=== PATIENT | female | born 1940 | race Caucasian/White ===

== ENCOUNTER 2024-05-02 23:41 | Inpatient (IN) | payer OTHER, SELFPAY ==
[2024-05-02 18:44] VITALS: BP 143/86
[2024-05-02 19:19] VITALS: BMI 18.5
[2024-05-02 19:43] VITALS: BP 153/76
[2024-05-02 19:54] LABS: % Basophils 0.4 % (0-2); % Eosinophils 0.3 % (0-6); % Immature Granulocytes 0.3 % (0-0.5); % Lymphocytes 15.1 % (20.5-51.1); % Neutrophils 79.9 % (42.2-75.2); Absolute Lymphocytes 1.2 10^3/uL (1.2-3.4); Absolute Monocytes 0.3 10^3/uL (0.1-0.6); Absolute Neutrophils 6.1 10^3/uL (1.4-6.5); Hematocrit 34.4 % (37.0-47.0); Hemoglobin 11.1 g/dL (12.0-16.0); Mean Corp Hgb Conc. 32.3 g/dL (33.0-37.0); Mean Corpuscular Hgb 26.9 pg (27.0-31.0); Mean Corpuscular Volume 83.3 fL (81.0-99.0); Mean Platelet Volume 8.8 fL (7.4-10.4); Nucleated Red Blood Cells % 0 %; Platelet Count 210 10^3/uL (130-400); Red Blood Cell Count 4.13 10^6/uL (4.20-5.40); Red Cell Dist. Width 16.6 % (11.5-14.5); White Blood Cell Count 7.7 10^3/uL (4.8-10.8)
[2024-05-02 20:00] VITALS: BP 157/82
[2024-05-02 20:13] LABS: Blood Urea Nitrogen 25 mg/dl (7-17); Calcium 8.3 mg/dl (8.4-10.2); Carbon Dioxide 27 mmol/L (22-30); Chloride 105 mmol/L (98-107); Estimated Creatinine Clearance 17 ml/min; Glucose 104 mg/dl (70-99); Sodium 138 mmol/L (135-145); eGFR 27.44
--- NOTE | 2024-05-02 20:23 | ED.GENMED ---
History of Present Illness
General
Chief Complaint: Breathing Problem
Source: patient and family (Son)
Exam Limitations: none
Time Seen by Provider: 05/02/24 19:48
Nursing documentation reviewed up to this point in time: agreed with
History of Present Illness
History of Present Illness:
The patient is an 83-year-old female with a past medical history of lung cancer years ago with a lobectomy, as well as hypertension, who was brought in by her son for several months of increased fatigue, generalized weakness, and recent findings of
pulse ox in the 80s. Patient denies pain but reports she just feels extremely tired. Patient lives alone however son checks up on her every day. Patient denies any recent falls. Patient reports at least 10 pound weight loss this year but states
she has been eating well. Patient denies cough, fever, and specific shortness of breath.
Past History
Past History
ED Past Medical History: Cancer (Esophageal cancer treated with resection 2010.), GERD, HTN, NIDDM and Hypothyroidism
ED Past Surgical History: Gynecological and Other (Esophagectomy 2011 lung resection, partial gastric resection.)
Social History
Tobacco: Former smoker
Alcohol: None
Drug: None
Personal: Single
Living: alone
Employment: Retired
Family History
Family History: Other (Noncontributory)
Review of Systems
Review of Systems
Allergies reviewed?: Yes
Other source history: family
All Other Systems: ROS reviewed and negative except as documented in HPI and ROS
Constitutional: Reports weight loss and fatigue
EENT: Reports no symptoms
Respiratory: Reports no symptoms
Cardiac: Reports no symptoms
ABD/GI: Reports no symptoms
: Reports no symptoms
Musculoskeletal: Reports no symptoms
Skin: Reports no symptoms
Neurological: Reports no symptoms
Endocrine: Reports no symptoms
Hematologic/Lymphatic: Reports no symptoms
Psychiatric: Reports no symptoms
Phy Exam
Physical Exam
Physical Exam:
Physical Exam
General: Chronically ill appearing, cachectic
Neck: supple. no meningeal signs. normal psoterior pharynx
Heart: s1/s2 regular rate and rhythm,
Lungs: no acute respiratory distress. Decreased breath sounds bilaterally
Abdomen: normal bowel sounds. not tender. no CVAT
Neuro: alert and oriented. no focal neurological deficits
Skin: no rash
Psychiatric: well kept. interactive and cooperative
Extremities: no edema. no calf tenderness. negative homans. good distal pulses
Scores
Heart Failure Risk
Heart Failure Risk Score: Not Applicable
Course
Orders/Labs/Results
Orders:
Orders
05/02/24 19:43
Basic Metabolic Panel Urgent
Comment: BMP NO K
Complete Blood Count/With Diff Urgent
05/02/24 19:47
EKG [Electrocardiogram (*1)] Urgent
Reason for Study: Shortness of Breath
EKG- Treatment ONCE
05/02/24 20:37
CT Chest W/o Iv Contrast Urgent
Comment:
Reason For Exam: SOB, weight loss
05/02/24 20:38
Oqysh-Ummt-Ijfmskh Urgent
Potassium Urgent
Abnormal Lab Results
05/02/24 05/02/24
19:43 20:38
RBC 4.13 L 10^6/uL
(4.20-5.40)
Hgb 11.1 L g/dL
(12.0-16.0)
Hct 34.4 L %
(37.0-47.0)
MCH 26.9 L pg
(27.0-31.0)
MCHC 32.3 L g/dL
(33.0-37.0)
RDW 16.6 H %
(11.5-14.5)
Neutrophils % 79.9 H %
(42.2-75.2)
Lymphocytes % 15.1 L %
(20.5-51.1)
BUN 25 H mg/dl
(7-17)
Creatinine 1.8 H mg/dL
(0.6-1.0)
Glucose 104 H mg/dl
(70-99)
Calcium 8.3 L mg/dl
(8.4-10.2)
Total Protein 5.9 L g/dl
(6.3-8.2)
Albumin 3.1 L g/dl
(3.5-5.0)
05/02/24 19:43
05/02/24 20:38
Vital Signs
Initial and Last Documented VS:
Initial Vital Signs
Temp Pulse Resp BP Pulse Ox
97.9 F 87 20 143/86 94
05/02/24 18:44 05/02/24 18:44 05/02/24 18:44 05/02/24 18:44 05/02/24 18:44
Last Documented Vital Signs
Temp Pulse Resp BP Pulse Ox
97.9 F 54 20 149/75 98
05/02/24 18:44 05/02/24 22:15 05/02/24 22:15 05/02/24 22:00 05/02/24 22:00
MDM/Problems Addressed
Differential Diagnosis Includes:
Acute dehydration, acute CHF, recurrence of malignancy
MDM/Problems Addressed:
Patient presents with several months of weight loss and fatigue with an acutely low pulse ox
Chronic conditions affecting care:
Patient has a history of cancer which may be reoccurring and causing weight loss and fatigue
Chronic conditions affecting care: Cancer
Acute Exacerbation and/or Progression of Chronic Illness:
Patient may have acute recurrence of cancer
Acute Exacerbation and/or Progression of Chronic Illness: Cancer
*Radiology
Radiology exam reviewed: radiology read reviewed
*Pulse Oximetry
Patient hypoxic: no
*EKG
Interpreted by ED Provider?: Yes
Interpretation: abnormal
Comparison EKG: changes noted
Rate: bradycardiac
Rhythm: junctional
Roff: normal axis
Interval: normal interval
QRS Pattern: low voltage
Ischemia: non-specific ST changes
*[facility] Interpretation
Rate: bradycardiac
Interpretation: abnormal
Rhythm: other
*Critical Care Note
Total Time (30-74mins, 75-104mins- exclusive of procedures): Not Applicable
Data Reviewed
Review of Other/Old Records Reveals: Testing (Colonoscopy reviewed from 2019 which shows diffuse diverticulosis)
Source: patient
Patient Management
Social determinants of health affecting care: Living situation
ED Attending Note
-
Portions of this chart may have been created with voice recognition software.� Occasional wrong word or��sound alike� substitutions may have occurred due to the inherent limitations of voice recognition software.
Discharge Plan
Departure
Patient Disposition: Admit
Date of Disposition: 05/02/24
Time of Disposition: 22:18
Admit to: Med/Surg
Presentation/result/management discussed w/ accepting MD/DO: Hospitalist
Condition: Fair
Covid-19: Not Applicable
Discharge Problem:
Pleural effusion, bilateral, Acute bronchiolitis, Multifocal pneumonia, acute hypoxia
Prescriptions:
No Action
latanoprost 1 DROP drops
1 drp BOTH EYES HS
levothyroxine 75 MCG tablet
75 mcg PO DAILY
lansoprazole 30 MG capsule,delayed release(DR/EC)
30 mg PO DAILY
doxazosin 4 MG tablet
4 mg PO HS
esomeprazole magnesium [Nexium 24HR] 22.3 MG capsule,delayed release(DR/EC)
22.3 mg PO PRN PRN (Reason: GI distress)
propylene glycol-glycerin [Advanced Eye Relief] 15 ML drops
1 drp BOTH EYES TID
omeprazole magnesium [Prilosec OTC] 20 MG tablet,delayed release (DR/EC)
20 mg PO DAILY
polyethylene glycol 3350 17 GRAMS powder in packet
17 grams PO DAILY 0RF
alprazolam 0.25 MG tablet
0.25 mg PO BIDPRN PRN (Reason: anxiety)
lisinopril 10 MG tablet
10 mg PO DAILY
sennosides [senna] 1 TABLET tablet
2 tab PO BID 0RF
ipratropium-albuterol 3 ML solution for nebulization
3 ml inhalation R QID 0RF
ipratropium-albuterol 3 ML solution for nebulization
3 ml inhalation R Q4HPRN PRN (Reason: wheezing) 0RF
tizanidine 2 MG tablet
2 mg PO TID 0RF
acetaminophen [Tylenol Extra Strength] 500 MG tablet
1,000 mg PO QID 0RF
hydromorphone 2 MG tablet
2 mg PO Q4HPRN PRN (Reason: mild pain) Qty: 40 0RF
magnesium hydroxide 30 ML suspension
30 ml PO DAILYPRN PRN (Reason: constipation) 0RF
aspirin 325 MG tablet,delayed release (DR/EC)
325 mg PO DAILY 0RF
ferrous sulfate [FeroSul] 325 MG tablet
325 mg PO DAILY 0RF
lidocaine 1 PATCH adhesive patch,medicated
2 patch topical DAILY 0RF
docusate sodium 100 MG capsule
100 mg PO BID 0RF
alum-mag hydroxide-simeth [Mag-Al Plus] 30 ML suspension
30 ml PO Q4HPRN PRN (Reason: INDIGESTION) 0RF
hydromorphone 4 MG tablet
4 mg PO Q4HPRN PRN (Reason: mod pain) Qty: 40 0RF
ppuciwln-mhz-yjopmqq gluconate [Centrum] 9 MG/15 ML liquid
9 mg PO DAILY
ergocalciferol (vitamin D2) 50,000 UNITS capsule
50,000 units PO WE
Referrals:
Saqib Mcgrath, [Family Provider] -
Interventions
Interventions:
*Risk Screen - Suicide Last Done: 05/02/24 21:21
*General Assessment Last Done: 05/02/24 18:44
*Neglect/Abuse Screening Last Done: 05/02/24 21:21
ED- Fall Risk Assessment Last Done: 05/02/24 19:21
*ED COVID-19 Vaccine History Last Done: 05/02/24 18:44
ED- Cardiac Assessment Last Done: 05/02/24 19:21
ED- Pulmonary Assessment Last Done: 05/02/24 19:21
Discharge Date and Time
Print Language: FRENCH
[2024-05-02 20:57] LABS: ALT (SGPT) < 10 U/L (0-35); AST (SGOT) 18 U/L (14-36); Albumin 3.1 g/dl (3.5-5.0); Alkaline Phosphatase 68 U/L (38-126); Direct Bilirubin 0.3 mg/dl (0.0-0.4); Potassium 4.7 mmol/L (3.5-5.1); Total Bilirubin 0.4 mg/dl (0.2-1.3); Total Protein 5.9 g/dl (6.3-8.2)
[2024-05-02 21:00] VITALS: BP 147/80
[2024-05-02 22:00] VITALS: BP 149/75
--- NOTE | 2024-05-02 22:51 | HPS.HSE ---
Family Physician
-
Family Physician: Saqib Mcgrath
Chief Complaint
-
weight loss, fatigue
History of Present Illness
83F lives alone HX Esophageal cancer treated with resection 2010, Lobectomy for HX Ca Lung yrs ago T2DM, HTN BiB Son for evalaution of gradual onset of increased fatigue, generalized weakness, and recent findings of pulse ox in the 80s.
Son check on her daily.
Patient reports at least 10 pound weight loss this year but states she has been eating well.
ROS
Patient denies pain but reports she just feels extremely tired.
Patient denies any recent falls.
Patient denies cough, fever, and specific shortness of breath.
Medical History
Past Medical History
Past Medical History: Reports Cancer (HX Esophageal cancer treated with resection 2010, Lobectomy for HX Ca Lung yrs ago ), HTN and Hypothyroidism
Past Surgical History: Reports Other (HX Esophageal cancer treated with resection 2010, Lobectomy for HX Ca Lung yrs ago )
Social History
Tobacco: Non-smoker
Alcohol: None
Living: Alone
Family History
Family History: Not pertinent
Allergies / Home Medications
Allergies reflects when Allergies were last updated in [facility].
Home Medications with original date entered in [facility]
Allergy/Medication List:
Allergies
Allergy/AdvReac Type Severity Reaction Status Date / Time
NKA - No Known Allergies Allergy Unknown Uncoded 05/02/24 18:48
Home Medications
doxazosin 4 mg tablet 4 mg PO HS 05/10/17
esomeprazole magnesium 20 mg capsule,delayed release (Nexium 24HR) 22.3 mg PO PRN PRN GI distress 05/10/17
lansoprazole 30 mg capsule,delayed release 30 mg PO DAILY 05/10/17
latanoprost 0.005 % eye drops 1 drp BOTH EYES HS 05/10/17
levothyroxine 75 mcg tablet 75 mcg PO DAILY 05/10/17
omeprazole magnesium 20 mg tablet,delayed release (Prilosec OTC) 20 mg PO DAILY 05/10/17
propylene glycol 1 %-glycerin 0.3 % eye drops (Advanced Eye Relief) 1 drp BOTH EYES TID 05/10/17
polyethylene glycol 3350 17 gram oral powder packet 17 grams PO DAILY 05/23/17
alprazolam 0.25 mg tablet 0.25 mg PO BIDPRN PRN anxiety 06/09/17
lisinopril 10 mg tablet 10 mg PO DAILY 06/09/17
acetaminophen 500 mg tablet (Tylenol Extra Strength) 1,000 mg (2 x 500 mg) PO QID 06/13/17
aluminum-mag hydroxide-simethicone 200 mg-200 mg-20 mg/5 mL oral susp (Mag-Al Plus) 30 ml PO Q4HPRN PRN INDIGESTION 06/13/17
aspirin 325 mg tablet,delayed release 325 mg PO DAILY 06/13/17
docusate sodium 100 mg capsule 100 mg PO BID 06/13/17
ferrous sulfate 325 mg (65 mg iron) tablet (FeroSul) 325 mg PO DAILY 06/13/17
hydromorphone 2 mg tablet 2 mg PO Q4HPRN PRN mild pain ##40 06/13/17
hydromorphone 4 mg tablet 4 mg PO Q4HPRN PRN mod pain ##40 06/13/17
ipratropium 0.5 mg-albuterol 3 mg (2.5 mg base)/3 mL nebulization soln 3 ml inhalation R Q4HPRN PRN wheezing 06/13/17
ipratropium 0.5 mg-albuterol 3 mg (2.5 mg base)/3 mL nebulization soln 3 ml inhalation R QID 06/13/17
lidocaine 5 % topical patch 2 patch topical DAILY 06/13/17
magnesium hydroxide 400 mg/5 mL oral suspension 30 ml PO DAILYPRN PRN constipation 06/13/17
sennosides 8.6 mg tablet (senna) 2 tab PO BID 06/13/17
tizanidine 2 mg tablet 2 mg PO TID 06/13/17
ergocalciferol (vitamin D2) 1,250 mcg (50,000 unit) capsule 50,000 units PO WE 06/24/17
multivit and minerals-ferrous gluconate 9 mg iron/15 mL oral liquid (Centrum) 9 mg PO DAILY 06/24/17
Review of Systems
-
Constitutional: Reports Weight Loss and Fatigue
EENT: Reports No Symptoms
Respiratory: Reports Trouble Breathing
Cardiac: Reports No Symptoms
Abdomen/GI: Reports No Symptoms
: Reports No Symptoms
Musculoskeletal: Reports No Symptoms
Skin: Reports No Symptoms
Neurological: Reports No Symptoms
Endocrine: Reports No Symptoms
Hematologic/Lymphatic: Reports No Symptoms
Psych: Reports No Symptoms
Physical Exam
Vital Signs
Vital Signs
Temp Pulse Resp BP Pulse Ox
97.9 F 54 20 149/75 98
05/02/24 18:44 05/02/24 22:15 05/02/24 22:15 05/02/24 22:00 05/02/24 22:00
Physical Exam
General: Comfortable, Conversant and Other (thin, cahectic , skin and bone )
HEENT: NormoCephalic, Anicteric and Moist mucous membranes
Respiratory: Other (symmetric AE )
Cardiac: S1/S2 and Regular Rhythm; No Murmur
Breast: Deferred by me
GI: Soft, Non Distended and Normal Bowel Sounds; No Non Tender
Genito-urinary: Deferred by me
Musculoskeletal: No Edema
Skin: Warm and Dry
Neuro: Awake, Alert and Other (suspect slow cognitive speed and confused )
Psych: Calm and Confused; No Intact Judgment/Insight
Laboratory Results
-
05/02/24 19:43
05/02/24 20:38
Laboratory Results
Total Bilirubin 0.4 mg/dl (0.2-1.3) 05/02/24 20:38
AST 18 U/L (14-36) 05/02/24 20:38
ALT < 10 U/L (0-35) 05/02/24 20:38
Alkaline Phosphatase 68 U/L (38-126) 05/02/24 20:38
Data Reviewed
-
CT Scan: Report Reviewed by me
Lab Data: Labs Reviewed by me
Impression/Plan
-
Vital Signs
Temp Pulse Resp BP Pulse Ox
97.9 F 54 20 149/75 98
05/02/24 18:44 05/02/24 22:15 05/02/24 22:15 05/02/24 22:00 05/02/24 22:00
Laboratory Tests
06/24/17 05/02/24 05/02/24
20:48 19:43 20:38
WBC 7.7
Hgb 8.7 L 11.1 L
BUN 25 H
Creatinine 2.0 H 1.8 H
Estimated Creat Clear 22 17
eGFR 27.44
Albumin 3.1 L
Pending PCT
CT chest night hawk report
- small b/l pleural effusion
- concerning for acute bronchiolitis at Rt lung
- multifocal PNA at Rt lung
ASSESSMENT & PLAN
Somewhat chronic weakness and fatigue and cathexic
Significant Wt loss 35 lbs per Son over 3-6 months
HX suggestive subacute or chronic FTT decompensated by current PNA
CT suggest multifocal PNA at Rt lung
HX Esophageal cancer treated with resection 2010, Lobectomy for HX Ca Lung yrs ago
- Empiric IV ABx with CFTX and Azithromycin
- check PCT
- Pul consult to evaluate for possible recurrence of lung CA
Chr condition
suspect cognitive decline
CKD4
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
T2DM
Benign HTN
- pending Rx reconciliation
DVT Px: SQH
Code: DNR per POA son
IP MS
[2024-05-02 23:02] VITALS: BP 147/71
[2024-05-02] MEDS: ROCEPHIN 1000 MG IV (23:04)
[2024-05-02] MEDS: ZITHROMAX INFUSION 250 IV (23:11)
[2024-05-02 23:35] LABS: Procalcitonin < 0.05 ng/ml (0.0-0.25)
[2024-05-03] VITALS: BP 165/87
[2024-05-03 00:25] VITALS: BP 129/70
--- NOTE | 2024-05-03 01:56 | PTCARENOTE ---
Attempted to complete patients medication reconciliation- pt provided RN with paperwork with medication list from 2021 many medications on list not correct. Pt states son will provide with list in AM.
[2024-05-03 07:35] VITALS: BP 151/63
[2024-05-03 08:29] LABS: Hematocrit 31.5 % (37.0-47.0); Mean Corp Hgb Conc. 31.7 g/dL (33.0-37.0); Mean Corpuscular Hgb 27.3 pg (27.0-31.0); Mean Corpuscular Volume 86.1 fL (81.0-99.0); Mean Platelet Volume 8.6 fL (7.4-10.4); Platelet Count 189 10^3/uL (130-400); Red Blood Cell Count 3.66 10^6/uL (4.20-5.40); Red Cell Dist. Width 16.2 % (11.5-14.5); White Blood Cell Count 5.9 10^3/uL (4.8-10.8)
--- NOTE | 2024-05-03 08:42 | W.PN.HOSP.TC ---
Addendum entered and electronically signed by Evelio Montana MD 05/03/24 20:55:
Attending Addendum-
I saw and evaluated the patient. I reviewed the resident�s note and agree with findings and plan as documented in the resident�s note. Sub: feels weak. episode of emesis this am. 'i cant eat or drink that much- i just throw up after' Full 12 point
ROS reviewed and negative except as documented Exam: Vitals reviewed in chart GEN- cachectic appearing NAD heart RRR lungs scattered wheeze no BS at bases no rales rhonchi abd soft NT pos BS LE no edema PLan:
# CAP vs Aspiration PNA
- cont azithromycin and Rocephin day # 2
- pulm consult
- speech eval
CT-
1. Extensive reticulonodular and peribronchiolar opacities bilaterally, right greater than left. Differential diagnosis includes severe bronchiolitis/infection, and lymphangitic spread of carcinoma.
2. Multiple pulmonary nodules, measuring up to 2.7 cm in diameter. These may be infectious or neoplastic. Consider short-term follow-up CT.
3. Small bilateral pleural effusions.
- d/w patient and son- likely to pursue palliative care and dc home on abx
# N/V/ Significant Weight Loss/Severe PCM
- check ct abd
- symptomatic/supportive care
- speech eval
- GI c/s
#Acute Hypoxemic Respiratory Failure
- likely due to aspiration and PNA
- wean o2 for sats > 92%
# GERD
- cont pepcid
# Hypothyroidism
- check TSH
- cont levothyroxine
# HTN
- cont lisinopril for now
# CKD 4
- baseline cr @ 1.8
- avoid NT agents
# Lung ca - s/p lobectomy with likely new mets- pall care, eventual hospice, f/u [facility]
# Esophageal ca- s/p esophagectomy with pullthrough
DVT-p- hep sc
Code - DNR
Dispo DC home on hospice likely
Time spent coordinating care, review of plan of care with resident, personally reviewed records in EMR, med rec, consults, notes, labs, radiology, d/w nursing �65 mins
Original Note:
Today's Communication/Plan
-
C/w Abx for suspected Aspiration PNA. Likely Palliative consult in the AM w/ possible discharge home on oral Abx.
Assessment / Plan
Assessment / Plan
Assessment & Plan
##Multifocal Bacterial Pneumonia of the right lung, likely secondary to aspiration event at home
- Started on empiric Abx Azithromycin PO & Ceftriaxone IV for presumed CAP
- History of chronic aspiration at home
- CT findings of extensive reticulonodular and peribronchiolar opacities bilaterally, right greater than left, and extensive interstitial and acinar airspace disease throughout the right lower lobe suggesting pneumonia
- C/w abx as above
#History fo Non-Small Cell Lung Cancer, s/p wedge resection
- CT (+) for Multiple pulmonary nodules, measuring up to 2.7 cm in diameter.
- Seen by pulmonology
- Recc. close followup with [facility] and repeat CT-imaging after resolution of bacterial pneumonia
#Fatigue, generalized weakness
#Vomiting
#Weight Loss
- 35lb weight loss since 2023
- Likely a combination of 7cm hiatal hernia vs. cancer recurrence
- GI Consulted for evaluation
- Consider palliative consult in the AM
- Aspiration precautions
#Type II Diabetes Mellitus
- Glucose 75 in the AM
- Holding diabetes medication for now as patient is barely tolerating PO
#Hypertension, Essential
- On home dose lisinopril 10mg PO
#Hypothyroidism
- Start on most recent home dose 88mcg
Dispo: Med/Surg
Diet: Cholesterol Lowering
DVT PPx: Heparin 5000 Q12H
Code: DNR
Anticipated Discharge: 24 - 48 hours
Subjective/Interval History
-
This morning the patient was seen just after breakfast. She had attempted to eat a solid breakfast, but had vomited up her stomach contents into her bowl only minutes prior to the examination. There was no blood in the vomit and the patient then
began to describe persistent vomiting over the precedent two weeks, typically after her stomach had 'become full enough.' She complained of no pain or shortness of breath, only of fatigue. She endorses no fevers, chills, shortness of breath, chest
pain, lightheadedness, palpitations, nausea, diarrhea, or urinary symptoms.
The son was interviewed in the afternoon and further information was elucidated regarding the patient's cancer history. For treatment of distal esophageal signet ring cell adenocarcinoma, the patient underwent resection and esophagectomy with
gastric pull-through. After this time, she has apparently had a chronic history of aspiration of food contents. It is unclear if she has had diagnosed aspiration pneumonia, however, or if she has ever been treated for this in the past.
The most recent medication list provided by family is dated from 2021.
Son Molly #[phone]
Objective Data
-
Labs:
Laboratory Results
05/02/24 05/03/24
20:38 07:50
WBC 5.9
Hgb 10.0 L
Hct 31.5 L
Plt Count 189
Sodium Pending
Potassium 4.7 Pending
Chloride Pending
Carbon Dioxide Pending
BUN Pending
Creatinine Pending
Glucose Pending
Calcium Pending
Total Bilirubin 0.4 Pending
AST 18 Pending
ALT < 10 Pending
Alkaline Phosphatase 68 Pending
Vital Signs:
Vital Signs
Temp Pulse Resp BP Pulse Ox
97.6 F 67 18 129/70 98
05/03/24 00:25 05/03/24 00:25 05/03/24 00:25 05/03/24 00:25 05/03/24 00:30
I&O
05/02/24 05/03/24 05/04/24
06:59 06:59 06:59
Intake Total 240 / 240
Balance 240 / 240
Review of Systems
-
History Source: Patient and Family
All other systems: Reviewed and negative
Constitutional: Reports Weight Loss, No Appetite, Fatigue and Weakness
EENT: Reports No Symptoms Reported
Respiratory: Reports No Symptoms
Cardiac: Reports No Symptoms
Abdomen/GI: Reports Vomiting
Breast: Reports No Symptoms
Genitourinary: Reports No Symptoms
Musculoskeletal: Reports Muscle Weakness
Skin: Reports No Symptoms
Neuro: Reports No Symptoms
Endocrine: Reports No Symptoms
Hematologic / Lymphatic: Reports No Symptoms
Physical Exam
-
General: Appears Chronically Ill and Cachectic
HEENT: Normocephalic, Atraumatic, Neck Non Tender and Oxygen
Respiratory: Wheezes (End expiratory wheezing, BL but more pronounced on the R) and Crackles
Cardiac: Regular Rhythm, S1/S2 and Bradycardic
Breast: Deferred by me
GI: Soft, Nontender, Nondistended and Normal Bowel Sounds
Genito-urinary: No Costovertebral Tender
Musculoskeletal: No Clubbing, No Cyanosis and No Edema
Neuro: Awake, Alert and Oriented
Hematologic / Lymphatic: No Lymphadenopathy
[2024-05-03 08:50] LABS: ALT (SGPT) < 10 U/L (0-35); AST (SGOT) 16 U/L (14-36); Albumin 2.6 g/dl (3.5-5.0); Alkaline Phosphatase 64 U/L (38-126); Blood Urea Nitrogen 24 mg/dl (7-17); Calcium 8.2 mg/dl (8.4-10.2); Carbon Dioxide 28 mmol/L (22-30); Chloride 107 mmol/L (98-107); Estimated Creatinine Clearance 17 ml/min; Glucose 75 mg/dl (70-99); Sodium 140 mmol/L (135-145); Total Bilirubin 0.4 mg/dl (0.2-1.3); Total Protein 5.3 g/dl (6.3-8.2); eGFR 27.44
--- NOTE | 2024-05-03 09:00 | PTCARENOTE ---
Pt. vomited approx. 100 ml undigested food post breakfast meal. Dr. Gamble at bedside rounding and witnessed. Pt. reports unable to eat full meal over the past week without vomiting. Will continue to monitor pt.
[2024-05-03] MEDS: HEPARIN 5000 UNITS SC ×2 (09:23→20:05)
[2024-05-03] MEDS: OMNIPAQUE 50 ML PO (10:46)
[2024-05-03] MEDS: ZOFRAN 4 MG IV (10:46)
[2024-05-03 11:24] VITALS: BP 119/72; PULSE 63; O2SAT 94
--- NOTE | 2024-05-03 14:51 | CON.PUL ---
Consultation
Consultation Request
Date/Time Consultation Requested: 05/03/2024
Date/Time Consultation Performed: 05/03/2020
Requesting Provider: Dr. Babcock
Performing Provider: Dr. Tico Mason
Reason for Consultation: Abnormal CT chest-concern for cancer recurrence
Medical History
-
History of Present Illness:
83-year-old woman who lives independently and has history of esophageal cancer treated with resection in 2010, history of lung cancer status post resection years ago, type 2 diabetes, hypertension, came to the hospital complaining of gradual
increased fatigue, generalized weakness and recent findings of hypoxemia.
The son usually checks on her on a daily basis.
Reports a 10 pound weight loss recently.
Appetite has declined.
Underwent CT chest as part of the evaluation and showed abnormalities including: Extensive reticulonodular and peribronchiolar opacities bilaterally, right greater than left. Multiple pulmonary nodules up to 2.7 cm in diameter. Small pericardial
effusion, bilateral pleural effusion
We were consulted for evaluation of lung masses and abnormal CT findings.
Past Medical History
Past Medical History: Other (Assessment and plan)
Social History
Tobacco: Non-smoker
Alcohol: None
Living: Alone
Family History
Family History: Reviewed & Not Pertinent
Allergies / Home Medications
Allergies
Allergy/AdvReac Type Severity Reaction Status Date / Time
NKA - No Known Allergies Allergy Unknown Unknown Uncoded 05/03/24 00:37
Home Medications
�Medication �Instructions �Recorded �Confirmed �Last Taken �Type
doxazosin 4 mg tablet 4 mg PO HS 05/10/17 06/24/17 06/08/17 History
esomeprazole magnesium 20 mg 22.3 mg PO PRN PRN GI distress 05/10/17 06/24/17 05/20/17 16:00 History
capsule,delayed release (Nexium
24HR)
lansoprazole 30 mg capsule,delayed 30 mg PO DAILY 05/10/17 06/24/17 06/09/17 07:00 History
release
latanoprost 0.005 % eye drops 1 drp BOTH EYES HS 05/10/17 06/24/17 06/08/17 History
levothyroxine 75 mcg tablet 75 mcg PO DAILY 05/10/17 06/24/17 06/09/17 07:00 History
omeprazole magnesium 20 mg 20 mg PO DAILY 05/10/17 06/24/17 06/09/17 07:00 History
tablet,delayed release (Prilosec
OTC)
propylene glycol 1 %-glycerin 0.3 1 drp BOTH EYES TID 05/10/17 06/24/17 06/09/17 History
% eye drops (Advanced Eye Relief)
polyethylene glycol 3350 17 gram 17 grams PO DAILY 05/23/17 06/24/17 Unknown Rx
oral powder packet
lisinopril 10 mg tablet 10 mg PO DAILY 06/09/17 06/24/17 06/09/17 07:00 History
aluminum-mag hydroxide-simethicone 30 ml PO Q4HPRN PRN INDIGESTION 06/13/17 06/24/17 Unknown Rx
200 mg-200 mg-20 mg/5 mL oral susp
(Mag-Al Plus)
aspirin 325 mg tablet,delayed 325 mg PO DAILY 06/13/17 06/24/17 Unknown Rx
release
docusate sodium 100 mg capsule 100 mg PO BID 06/13/17 06/24/17 Unknown Rx
ferrous sulfate 325 mg (65 mg 325 mg PO DAILY 06/13/17 06/24/17 Unknown Rx
iron) tablet (FeroSul)
ipratropium 0.5 mg-albuterol 3 mg 3 ml inhalation R Q4HPRN PRN 06/13/17 06/24/17 Unknown Rx
(2.5 mg base)/3 mL nebulization wheezing
soln
ipratropium 0.5 mg-albuterol 3 mg 3 ml inhalation R QID 06/13/17 06/24/17 Unknown Rx
(2.5 mg base)/3 mL nebulization
soln
lidocaine 5 % topical patch 2 patch topical DAILY 06/13/17 06/24/17 Unknown Rx
magnesium hydroxide 400 mg/5 mL 30 ml PO DAILYPRN PRN constipation 06/13/17 06/24/17 Unknown Rx
oral suspension
sennosides 8.6 mg tablet (senna) 2 tab PO BID 06/13/17 06/24/17 Unknown Rx
tizanidine 2 mg tablet 2 mg PO TID 06/13/17 06/24/17 Unknown Rx
ergocalciferol (vitamin D2) 1,250 50,000 units PO WE 06/24/17 06/24/17 Unknown History
mcg (50,000 unit) capsule
multivit and minerals-ferrous 9 mg PO DAILY 06/24/17 06/24/17 Unknown History
gluconate 9 mg iron/15 mL oral
liquid (Centrum)
escitalopram oxalate 5 mg tablet 5 mg PO DAILY 05/02/24 Unknown History
(Lexapro)
Review of Systems
-
History Source: Patient
All other systems: Negative unless noted
Vitals / Labs / Diagnostic Testing
Vital Signs
Temp Pulse Resp BP Pulse Ox
97.6 F 56 18 151/63 3
05/03/24 07:35 05/03/24 07:35 05/03/24 07:35 05/03/24 07:35 05/03/24 09:00
Lab Data
05/03/24 07:50
05/03/24 07:50
Diagnostic Testing:
Physical Exam
-
HEENT: Normocephalic
Cardiovascular: S1/S2
Respiratory: Rales
GI: Soft and Non Distended
Neurology: Awake
Skin: Warm
General: Comfortable and Other (Cachectic)
Assessment
-
-Abnormal CT chest: Reviewed, right lung reticulonodular extensive infiltrate. Peribronchial opacities bilaterally.
Pulmonary nodule right upper lobe 2.7 cm spiculated. Right lower lobe 1.7 cm spiculated. Right middle lobe 2.3 cm. Peripheral left upper lobe 4 mm, left lower lobe 1.2 cm. Innumerable centrilobular nodules and peribronchial thickening right
upper lobe, right middle lobe and right lower lobe. Small bilateral pleural effusions.
-Anemia
Conditions present prior admission:
Prior history of lung cancer-follows up at [facility]. Last time seen was 02/05/2024.
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
Right middle lobe groundglass opacity status post wedge resection in 2010.
History of non-small cell cancer
History of vocal cord paralysis and aspiration
Delayed gastric emptying
Chronic aspiration
Chronic kidney disease stage IV
Type 2 diabetes
Benign hypertension DNR
Assessment and plan:
Based on symptoms, weight loss, failure to thrive, CAT scan findings suggestive of recurrent lung cancer . Or other metastatic disease
I reviewed old records, she follows up at [facility]. Prior she has history of lung cancer status post resection, esophageal cancer many years ago status post esophagectomy with pull-through.
Recurrent aspiration.
Peripheral chest reports last CAT scans show also innumerable lung nodules that fluctuated over the years suggestive of aspiration.
There was no mention of large masses as on this CAT scan.
-
At this point I will recommend therapy for aspiration pneumonia/pneumonitis. Agree with current antibiotics.
Nebulizers as needed
Acapella device if able.
Sputum culture if able
Aspiration precautions. Patient has known aspiration chronically.
Once patient improved then follow-up at [facility] for further evaluation of lung masses.
I doubt that this patient based on clinical situation will tolerate any systemic therapy. I discussed with the son and [id number] at the bedside on 05/03/2024 and they both agree that she would not tolerate any other aggressive therapy.
Palliative care/hospice may be an option in the future.
CT abdomen pelvis without evidence for metastatic disease.
-
Follows up with pulmonary at [facility] as well.
Will recommend return to primary catshovel driver/oncologist for further evaluation after discharge. Family agreed that no further aggressive evaluation will be offered.
Patient is eager to go home.
-
Nutritional support
-
Will follow
[2024-05-03 15:38] VITALS: BP 157/75
[2024-05-03] MEDS: ZITHROMAX 500 MG PO (21:20)
[2024-05-03] MEDS: PEPCID 10 MG PO (21:20)
[2024-05-03] MEDS: STERILE WATER FOR INJECTION 10 ML IV (21:24)
[2024-05-03] MEDS: ROCEPHIN 1000 MG IV (21:24)
[2024-05-03 23:46] VITALS: BP 153/62
[2024-05-04] MEDS: SYNTHROID 88 MCG PO (05:27)
--- NOTE | 2024-05-04 06:53 | W.PN.HOSP.TC ---
Today's Communication/Plan
-
Pending Palliative consult & GI consult. C/w IV fluids and will try Ensure.
Assessment / Plan
Assessment / Plan
Assessment & Plan
##Multifocal Bacterial Pneumonia of the right lung, likely secondary to aspiration event at home vs CAP
- Started on empiric Abx Azithromycin PO & Ceftriaxone IV for presumed CAP
- History of chronic aspiration at home
- CT findings of extensive reticulonodular and peribronchiolar opacities bilaterally, right greater than left, and extensive interstitial and acinar airspace disease throughout the right lower lobe suggesting pneumonia
- C/w abx as above
#Acute hypoxic respiratory failure
- Secondary to pneumonia
- Hypoxic into the 80s at home, on 3.5L NC in hospital
- Wean to >92% on RA
#Fatigue, generalized weakness
#Vomiting
#Weight Loss
- 35lb weight loss since 2023
- Likely a combination of 7cm hiatal hernia vs. cancer recurrence
- Speech & Swallow eval: c/w regular solids/thin liquids as swallow is intact
- GI Consulted for evaluation; pending
- Palliative consulted; will see tomorrow
- Started on D5 NS @ 60cc/hour considering poor PO intake
- Aspiration precautions
#Type II Diabetes Mellitus
- Glucose 70 in the AM
- Holding diabetes medication for now as patient is barely tolerating PO
#Hypertension, Essential
- On home dose lisinopril 10mg PO
#Hypothyroidism
- Start on most recent home dose 88mcg
#History of Non-Small Cell Lung Cancer, s/p wedge resection
- CT (+) for Multiple pulmonary nodules, measuring up to 2.7 cm in diameter.
- Seen by pulmonology
- Recc. close followup with [facility] and repeat CT-imaging after resolution of bacterial pneumonia
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
- s/p esophageal resection with gastric pull through
Dispo: Med/Surg
Diet: Cholesterol Lowering
DVT PPx: Heparin 5000 Q12H
Code: DNR
Anticipated Discharge: 24 - 48 hours
Subjective/Interval History
-
Seen in the AM. Had another episode of vomiting up solid breakfast. No nausea, abdominal pain, fevers, chills, cough, shortness of breath, chest pain, or blood in the vomit. No other acute or overnight events.
Objective Data
-
Labs:
Laboratory Results
05/04/24
06:00
WBC Pending
Hgb Pending
Hct Pending
Plt Count Pending
Sodium Pending
Potassium Pending
Chloride Pending
Carbon Dioxide Pending
BUN Pending
Creatinine Pending
Glucose Pending
Calcium Pending
Total Bilirubin Pending
AST Pending
ALT Pending
Alkaline Phosphatase Pending
Vital Signs:
Vital Signs
Temp Pulse Resp BP Pulse Ox
98.5 F 58 16 153/62 96
05/03/24 23:46 05/03/24 23:46 05/03/24 23:46 05/03/24 23:46 05/03/24 23:46
I&O
05/02/24 05/03/24 05/04/24
06:59 06:59 06:59
Intake Total 240 / 240 480 / 480
Output Total 175 / 175
Balance 240 / 240 305 / 305
Review of Systems
-
History Source: Patient
All other systems: Reviewed and negative
Constitutional: Reports No Symptoms
EENT: Reports No Symptoms Reported
Respiratory: Reports No Symptoms
Cardiac: Reports No Symptoms
Abdomen/GI: Reports Vomiting
Breast: Reports No Symptoms
Genitourinary: Reports No Symptoms
Musculoskeletal: Reports Muscle Weakness
Skin: Reports No Symptoms
Neuro: Reports No Symptoms
Physical Exam
-
General: No Apparent Distress, Appears Chronically Ill and Cachectic
HEENT: Normocephalic, Atraumatic, PERRLA, Nose Appears Normal, Ears Appear Normal, Hearing Impaired, Good Dentition (Dentures), Neck Non Tender and Oxygen (3.5L NC)
Respiratory: Wheezes and Crackles
Cardiac: Regular Rhythm and S1/S2
Breast: Deferred by me
GI: Soft, Nontender, Nondistended and Normal Bowel Sounds
Genito-urinary: No Costovertebral Tender
Musculoskeletal: No Clubbing, No Cyanosis and No Edema
Neuro: Awake, Alert and Oriented
[2024-05-04 07:08] VITALS: BP 165/70
[2024-05-04 08:45] LABS: % Basophils 0.3 % (0-2); % Eosinophils 0.3 % (0-6); % Immature Granulocytes 0.3 % (0-0.5); % Lymphocytes 13.4 % (20.5-51.1); % Monocytes 2.8 % (1.7-9.3); % Neutrophils 82.9 % (42.2-75.2); Absolute Lymphocytes 1.2 10^3/uL (1.2-3.4); Absolute Monocytes 0.3 10^3/uL (0.1-0.6); Absolute Neutrophils 7.7 10^3/uL (1.4-6.5); Hemoglobin 9.7 g/dL (12.0-16.0); Mean Corp Hgb Conc. 31.3 g/dL (33.0-37.0); Mean Corpuscular Hgb 26.6 pg (27.0-31.0); Mean Corpuscular Volume 85.2 fL (81.0-99.0); Mean Platelet Volume 8.9 fL (7.4-10.4); Nucleated Red Blood Cells % 0 %; Platelet Count 207 10^3/uL (130-400); Red Blood Cell Count 3.64 10^6/uL (4.20-5.40); Red Cell Dist. Width 16.4 % (11.5-14.5); White Blood Cell Count 9.3 10^3/uL (4.8-10.8)
[2024-05-04] MEDS: HEPARIN 5000 UNITS SC ×2 (08:53→21:57)
[2024-05-04] MEDS: ZESTRIL 10 MG PO (08:54)
[2024-05-04] MEDS: FLUSH (NSS) 1 FLUSH IV (08:56)
[2024-05-04 09:07] LABS: ALT (SGPT) < 10 U/L (0-35); AST (SGOT) 16 U/L (14-36); Albumin 2.7 g/dl (3.5-5.0); Alkaline Phosphatase 67 U/L (38-126); Blood Urea Nitrogen 24 mg/dl (7-17); Calcium 8.5 mg/dl (8.4-10.2); Carbon Dioxide 28 mmol/L (22-30); Chloride 105 mmol/L (98-107); Estimated Creatinine Clearance 18 ml/min; Glucose 70 mg/dl (70-99); Potassium 4.3 mmol/L (3.5-5.1); Sodium 141 mmol/L (135-145); Total Bilirubin 0.3 mg/dl (0.2-1.3); Total Protein 5.4 g/dl (6.3-8.2); eGFR 29.39
[2024-05-04] MEDS: NSS 1000 IV (10:47)
--- NOTE | 2024-05-04 11:13 | PTOTSP ---
ST Dysphagia Evaluation
Oropharyngeal function appears intact at the bedside. Esophageal dysphagia; s/p esophagectomy w/ gastric pull through (2010)
Pt received awake/alert at the bedside. HOB raised upright for PO trials. Declined solid trials d/t recent vomiting episode. Per pt report vomitting can occur immediately after intake or after ~30 min delay. She states prior to x1 week of vomiting
she eats a normal diet (porkchops, chicken, etc.) Drank thin liquids by cup sip small/controlled sips swallow appears prompt. No overt s/sx of aspiration observed. Suspect pneumonia origins from reverse aspiration (bottom up) of vomitted contents >
aspiration during swallow however will follow as today's exam was limited to liquid trials only.
Recommendations
1. Continue regular solids/thin liquids from orophrayngeal standpoint
2. Strict aspiration and KIKI/reflux precautions - full upright during and up to 1 hr following any/all PO intake
3. Small bites, small/single sips, alternate liquids/solids and slow pacing of meal overall
4. Meds oral per pt preference and RN discretion
5. Consider GI consult
6. BATHHOUSE ATTENDANT following; monitor diet tolerance, determine if further objective measures are indicated
--- NOTE | 2024-05-04 13:18 | W.PN.PUL3 ---
Today's Communication / Plan
-
Continue antibiotics
Secretion clearance intervention
Aspiration precaution
Wait for cultures
Agree with palliative care intervention
Home oxygen assessment prior to discharge, she feels better with oxygen therapy
Son agrees that workup for lung mass will be deferred. Unlikely to tolerate any therapy at this point
Assessment
-
-Abnormal CT chest: Reviewed, right lung reticulonodular extensive infiltrate. Peribronchial opacities bilaterally.
Pulmonary nodule right upper lobe 2.7 cm spiculated. Right lower lobe 1.7 cm spiculated. Right middle lobe 2.3 cm. Peripheral left upper lobe 4 mm, left lower lobe 1.2 cm. Innumerable centrilobular nodules and peribronchial thickening right
upper lobe, right middle lobe and right lower lobe. Small bilateral pleural effusions.
-Anemia
Conditions present prior admission:
Prior history of lung cancer-follows up at [facility]. Last time seen was 02/05/2024.
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
Right middle lobe groundglass opacity status post wedge resection in 2010.
History of non-small cell cancer
History of vocal cord paralysis and aspiration
Delayed gastric emptying
Chronic aspiration
Chronic kidney disease stage IV
Type 2 diabetes
Benign hypertension DNR
Assessment and plan:
Based on symptoms, weight loss, failure to thrive, CAT scan findings suggestive of recurrent lung cancer Or other metastatic disease
I reviewed old records, she follows up at [facility]. Prior she has history of lung cancer status post resection, esophageal cancer many years ago status post esophagectomy with pull-through.
Recurrent aspiration-with history of innumerable pulmonary nodules suggestive of bronchiolitis. Being followed. Last time visit at [address] [place] [address] was 02/2024.
-
Prior chest reports last CAT scans show also innumerable lung nodules that fluctuated over the years suggestive of aspiration.
There was no mention of large masses.
-
At this point I will recommend therapy for aspiration pneumonia/pneumonitis. Agree with current antibiotics.
Nebulizers as needed
Acapella device if able.
Sputum culture if able-pending.
Aspiration precautions. Patient has known aspiration chronically.
Once patient improved then follow-up at [facility] for further evaluation of lung masses.
I doubt that this patient based on clinical situation will tolerate any systemic therapy. Dr. Mason discussed with the son and [id number] at the bedside on 05/03/2024 and they both agree that she would not tolerate any other aggressive therapy.
Palliative care/hospice may be an option.
CT abdomen pelvis without evidence for metastatic disease.
-
Home oxygen assessment prior to discharge.-
-
Follows up with pulmonary at [facility] as well.
Will recommend return to primary veterans' coordinator/oncologist for further evaluation after discharge. Family agreed that no further aggressive evaluation will be offered.
Patient is eager to go home.
-
Nutritional support
-
Will follow
Subjective Data
-
Date of Service:
Date of Service: May 04, 2024
Chief Complaint: Pulmonary Follow Up (Aspiration pneumonia/lung mass)
Subjective:
Continues to report intermittent coughing
Poor appetite
No shortness of breath at rest
Feels better with oxygen therapy
Review of Systems
Cardiopulmonary: Dyspnea and Cough
Objective Data
Data Reviewed
Vital Signs / I&O / Oxygen:
Vital Signs
Temp Pulse Resp BP Pulse Ox
97.5 F 60 18 165/70 96
05/04/24 07:08 05/04/24 08:54 05/04/24 07:08 05/04/24 08:54 05/04/24 08:47
Intake and Output
05/03/24 05/04/24 05/05/24
06:59 06:59 06:59
Intake Total 240 / 240 480 / 480
Output Total 175 / 175
Balance 240 / 240 305 / 305
SaO2 96
Nasal Cannula flow liters per 3
minute
Physical Exam
General: Comfortable and Other (Cachectic)
HEENT: Normocephalic
Cardiovascular: S1-S2
Respiratory: Crackles
GI: Soft and Non Distended
Neurology: Awake and Alert
Labs/Micro/Reports
Lab Data
05/04/24 06:57
05/04/24 06:57
--- NOTE | 2024-05-04 13:32 | CON.GI ---
Consultation
-
Date/Time Consultation Requested: 05/04/2024
Date/Time Consultation Performed: 05/04/2024
Performing Provider: Wilton Mcnulty
Reason for Consultation: vomiting, FTT
Medical History
Chief Complaint / HPI
Chief Complaint: vomiting, FTT
History of Present Illness:
Patient is a 83-year-old female with history of esophageal cancer s/p esophagectomy gastric pull-through (2010), lobectomy for lung cancer many years ago, DM, HTN who presented with fatigue, malaise, weight loss, and hypoxia. Patient states she
had lost significant amount of weight within the last 3 to 6 months. She also reports postprandial vomiting involving both solid and liquid. She vomits every time she eats. Denies abdominal pain. No NSAID use. On admission, CT chest showed
extensive bilateral opacities concerning for lymphangitic spread of carcinoma with multiple pulmonary nodules measuring up to 2.7 cm.
Past Medical History
Past Medical History: HTN, Hypothyroidism and Other
Past Surgical History: Other
Social History
Tobacco: Non-Smoker
Alcohol: None
Drug: None
Allergies / Home Medications
Allergy/AdvReac Type Severity Reaction Status Date / Time
NKA - No Known Allergies Allergy Unknown Unknown Uncoded 05/03/24 00:37
�Medication �Instructions �Recorded
doxazosin 4 mg tablet 4 mg PO HS 05/10/17
esomeprazole magnesium 20 mg 22.3 mg PO PRN PRN GI distress 05/10/17
capsule,delayed release (Nexium
24HR)
lansoprazole 30 mg capsule,delayed 30 mg PO DAILY 05/10/17
release
latanoprost 0.005 % eye drops 1 drp BOTH EYES HS 05/10/17
levothyroxine 75 mcg tablet 75 mcg PO DAILY 05/10/17
omeprazole magnesium 20 mg 20 mg PO DAILY 05/10/17
tablet,delayed release (Prilosec
OTC)
propylene glycol 1 %-glycerin 0.3 1 drp BOTH EYES TID 05/10/17
% eye drops (Advanced Eye Relief)
polyethylene glycol 3350 17 gram 17 grams PO DAILY 05/23/17
oral powder packet
lisinopril 10 mg tablet 10 mg PO DAILY 06/09/17
aluminum-mag hydroxide-simethicone 30 ml PO Q4HPRN PRN INDIGESTION 06/13/17
200 mg-200 mg-20 mg/5 mL oral susp
(Mag-Al Plus)
aspirin 325 mg tablet,delayed 325 mg PO DAILY 06/13/17
release
docusate sodium 100 mg capsule 100 mg PO BID 06/13/17
ferrous sulfate 325 mg (65 mg 325 mg PO DAILY 06/13/17
iron) tablet (FeroSul)
ipratropium 0.5 mg-albuterol 3 mg 3 ml inhalation R Q4HPRN PRN 06/13/17
(2.5 mg base)/3 mL nebulization wheezing
soln
ipratropium 0.5 mg-albuterol 3 mg 3 ml inhalation R QID 06/13/17
(2.5 mg base)/3 mL nebulization
soln
lidocaine 5 % topical patch 2 patch topical DAILY 06/13/17
magnesium hydroxide 400 mg/5 mL 30 ml PO DAILYPRN PRN constipation 06/13/17
oral suspension
sennosides 8.6 mg tablet (senna) 2 tab PO BID 06/13/17
tizanidine 2 mg tablet 2 mg PO TID 06/13/17
ergocalciferol (vitamin D2) 1,250 50,000 units PO WE 06/24/17
mcg (50,000 unit) capsule
multivit and minerals-ferrous 9 mg PO DAILY 06/24/17
gluconate 9 mg iron/15 mL oral
liquid (Centrum)
escitalopram oxalate 5 mg tablet 5 mg PO DAILY 05/02/24
(Lexapro)
Review of Systems
Vital Signs
Temp Pulse Resp BP Pulse Ox
97.5 F 60 18 165/70 96
05/04/24 07:08 05/04/24 08:54 05/04/24 07:08 05/04/24 08:54 05/04/24 08:47
Physical Exam
Exam
General: No Apparent Distress, Comfortable and Other (cachectic)
HEENT: Normocephalic
Respiratory: Rales
Cardiac: S1/S2
GI: Soft, Non Tender and Non Distended
Results
WBC 9.3 10^3/uL (4.8-10.8) 05/04/24 06:57
Hgb 9.7 g/dL (12.0-16.0) L 05/04/24 06:57
Hct 31.0 % (37.0-47.0) L 05/04/24 06:57
MCV 85.2 fL (81.0-99.0) 05/04/24 06:57
Plt Count 207 10^3/uL (130-400) 05/04/24 06:57
Absolute Neuts (auto) 7.7 10^3/uL (1.4-6.5) H 05/04/24 06:57
Sodium 141 mmol/L (135-145) 05/04/24 06:57
Potassium 4.3 mmol/L (3.5-5.1) 05/04/24 06:57
Chloride 105 mmol/L (98-107) 05/04/24 06:57
Carbon Dioxide 28 mmol/L (22-30) 05/04/24 06:57
BUN 24 mg/dl (7-17) H 05/04/24 06:57
Creatinine 1.7 mg/dL (0.6-1.0) H 05/04/24 06:57
Calcium 8.5 mg/dl (8.4-10.2) 05/04/24 06:57
Total Bilirubin 0.3 mg/dl (0.2-1.3) 05/04/24 06:57
AST 16 U/L (14-36) 05/04/24 06:57
ALT < 10 U/L (0-35) 05/04/24 06:57
Alkaline Phosphatase 67 U/L (38-126) 05/04/24 06:57
Diagnostic Image Results:
CT abd/pel 05/03/2024
IMPRESSION:
Extensive interstitial and acinar airspace disease throughout the right lower lobe suggesting pneumonia
2). 12 mm in diameter pericardial effusion.
3). 7 cm hiatal hernia.
4). Right hip replacement
5). Atherosclerosis
CT chest 05/02/2024
IMPRESSION:
1. Extensive reticulonodular and peribronchiolar opacities bilaterally, right greater than left. Differential diagnosis includes severe bronchiolitis/infection, and lymphangitic spread of carcinoma.
2. Multiple pulmonary nodules, measuring up to 2.7 cm in diameter. These may be infectious or neoplastic. Consider short-term follow-up CT.
3. Small bilateral pleural effusions.
4. Small pericardial effusion, measuring up to 1 cm in thickness.
5. Severe coronary arterial calcification. Please correlate with symptoms of and risk factors for coronary artery disease, with further workup as clinically appropriate.
Prior GI Procedures:
EGD:
Colonoscopy:
Assessment / Plan
-
83-year-old female with history of esophageal cancer s/p esophagectomy gastric pull-through (2010), lobectomy for lung cancer many years ago, DM, HTN who presented with fatigue, malaise, weight loss, and hypoxia. Patient states she had lost
significant amount of weight within the last 3 to 6 months. She also reports postprandial vomiting involving both solid and liquid. She vomits every time she eats. Denies abdominal pain. No NSAID use. On admission, CT chest showed extensive
bilateral opacities concerning for lymphangitic spread of carcinoma with multiple pulmonary nodules measuring up to 2.7 cm.
Impression / Rec:
1. Weight loss, FTT, post prandial vomiting - the etiology of her postprandial vomiting is not clear. She had CT of abdomen with oral contrast which was essentially nondiagnostic. She has pulmonary findings from chest CT which is suspicious for
carcinoma, but also pneumonia. She is in no shape to tolerate any endoscopic procedure at this time. Can consider upper GI series to rule out stenosis or obstructing lesion. If stenosis is seen, then can consider EGD for further evaluation, but
this can only after resolution of her PNA and her respiratory status improves / pulmonary clearance. In the interim, will need supplement (ensure). All of this was discussed with her son who understands. GI will s/o, call with questions.
Total Time Spent with Patient (in minutes): 55
-
-
Thank you for consultation and allowing me to participate in the patient's care. Please call the search consultant GI physician during the after hours with any questions or concerns.
--- NOTE | 2024-05-04 14:11 | PTCARENOTE ---
Pt vomited approx 100 ml thick bile colored secretions after eating breakfast/lunch today; stated 'I always do that'. Denies nausea at present. Will continue to monitor.
[2024-05-04 14:24] VITALS: BMI 18.5
[2024-05-04 15:44] VITALS: BP 145/74
--- NOTE | 2024-05-04 17:00 | PTCARENOTE ---
Pt AAO x3, ALFONSO; OOB to chair/ambulates to BR with assist x1; everton well; denies weakness/dizziness. VSS. On nc 3 lpm- pulseox 100%; O2 decreased to 2 lpm; will monitor. Abd soft, everton PO; appetite good; pt vomits approx 100 ml cloudy bile- colored
secretions after each meal. Void sin BR without difficulty. IVF's NSS @ 60 ml/hr infusing via Rt hand site without sx of infiltration. Resting in chair at present; no c/o. Will continue to monitor.
[2024-05-04] MEDS: PEPCID 10 MG PO (21:58)
[2024-05-04] MEDS: ROCEPHIN 1000 MG IV (21:59)
[2024-05-04] MEDS: STERILE WATER FOR INJECTION 10 ML IV (21:59)
[2024-05-04] MEDS: ZITHROMAX 500 MG PO (22:00)
[2024-05-04 23:32] VITALS: BP 159/73
[2024-05-05] MEDS: NSS 1000 IV (01:28)
[2024-05-05] MEDS: SYNTHROID 88 MCG PO (05:38)
[2024-05-05 07:50] VITALS: BP 108/74
[2024-05-05 09:04] LABS: % Basophils 0.3 % (0-2); % Eosinophils 0.3 % (0-6); % Immature Granulocytes 0.3 % (0-0.5); % Lymphocytes 13.6 % (20.5-51.1); % Monocytes 3.2 % (1.7-9.3); % Neutrophils 82.3 % (42.2-75.2); Absolute Lymphocytes 1.3 10^3/uL (1.2-3.4); Absolute Monocytes 0.3 10^3/uL (0.1-0.6); Absolute Neutrophils 7.7 10^3/uL (1.4-6.5); Hematocrit 31.8 % (37.0-47.0); Hemoglobin 10.1 g/dL (12.0-16.0); Mean Corp Hgb Conc. 31.8 g/dL (33.0-37.0); Mean Corpuscular Hgb 27.7 pg (27.0-31.0); Mean Corpuscular Volume 87.1 fL (81.0-99.0); Mean Platelet Volume 8.8 fL (7.4-10.4); Nucleated Red Blood Cells % 0 %; Platelet Count 182 10^3/uL (130-400); Red Blood Cell Count 3.65 10^6/uL (4.20-5.40); Red Cell Dist. Width 16.1 % (11.5-14.5); White Blood Cell Count 9.4 10^3/uL (4.8-10.8)
[2024-05-05] MEDS: HEPARIN 5000 UNITS SC ×2 (09:25→20:16)
[2024-05-05] MEDS: D5/0.9% SODIUM CHLORIDE 1000 IV (09:26)
[2024-05-05] MEDS: ZESTRIL 10 MG PO (09:26)
--- NOTE | 2024-05-05 09:32 | W.PN.PUL3 ---
Today's Communication / Plan
-
Continue antibiotics
Secretion clearance intervention
Aspiration precautions
Palliative care consulted - hospice now being considered
Home oxygen assessment prior to discharge
Son agrees that workup for lung mass will be deferred. Unlikely to tolerate any therapy at this point
Assessment
-
Impression:
Multifocal pneumonia likely due to aspiration
Multiple pulmonary nodules suspicious for malignancy with largest nodules: RUL: 2.7 cm, RLL: 13 x 17 mm, RML: 23mm; LLL: 12 x [address] chest: Reviewed, right lung reticulonodular extensive infiltrate. Peribronchial opacities bilaterally.
Pulmonary nodule right upper lobe 2.7 cm spiculated. Right lower lobe 1.7 cm spiculated. Right middle lobe 2.3 cm. Peripheral left upper lobe 4 mm, left lower lobe 1.2 cm. Innumerable centrilobular nodules and peribronchial thickening right
upper lobe, right middle lobe and right lower lobe. Small bilateral pleural effusions.
Anemia
Postprandial vomiting
Conditions present prior admission:
Prior history of lung cancer-follows up at [facility]. Last time seen was 02/05/2024.
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
Right middle lobe groundglass opacity status post wedge resection in 2010.
History of non-small cell cancer
History of vocal cord paralysis and aspiration
Delayed gastric emptying
Chronic aspiration
Chronic kidney disease stage IV
Type 2 diabetes
Benign hypertension DNR
Assessment and plan:
Based on symptoms, weight loss, failure to thrive, CT scan findings suggestive of recurrent lung cancer or other metastatic disease
Dr. Pruitt reviewed old records, she follows up at [facility]. Prior she has history of lung cancer status post RML wedge resection, esophageal cancer many years ago status post esophagectomy with pull-through.
Recurrent aspiration-with history of innumerable pulmonary nodules suggestive of bronchiolitis. Being followed
-
Prior chest CT scans show also innumerable lung nodules that fluctuated over the years suggestive of aspiration.
There was no mention of large masses.
-
At this point continue aspiration precautions and antibiotics
Patient has known chronic aspiration
Nebulizers as needed
Acapella device if able.
Sputum culture if able
Once patient improved then follow-up at [facility] for further evaluation of lung nodules
I doubt that this patient based on clinical situation will tolerate any systemic therapy. Dr. Mason discussed with the son and [id number] at the bedside on 05/03/2024 and they both agree that she would not tolerate any other aggressive therapy.
Palliative care swa patient today; hospice may be an option
CT abdomen pelvis without evidence for metastatic disease
GI consulted --> eventual UGIS if pt remains stable from respiratory standpoint
-
Home oxygen assessment prior to discharge.
-
Follows up with pulmonary at [facility] as well.
Will recommend return to primary product handler/oncologist for further evaluation after discharge. Family agreed that no further aggressive evaluation will be offered.
Patient is eager to go home.
-
Nutritional support
-
Will follow
Total time spent today was 35 minutes for this encounter. Time includes reviewing laboratory test/imaging results, reviewing pertinent medical records, obtaining and reviewing medical history, performing an appropriate exam, ordering medications,
tests and procedures. Time also includes documentation of this encounter, coordinating patient care and communicating with other healthcare professionals. Total time does not include separately billed tests performed on this date of service.
Subjective Data
-
Date of Service:
Date of Service: May 05, 2024
Chief Complaint: Pulmonary Follow Up (Aspiration pneumonia/lung mass)
Subjective:
Patient seen and evaluated today at bedside. She has no respiratory complaints, denying shortness of breath or chest pain. She is currently on room air breathing comfortably. Vomited this morning after having breakfast. She denies JESSICA, diarrhea,
fevers or chills.
Review of Systems
General: Other (Negative unless mentioned above)
Objective Data
Data Reviewed
Vital Signs / I&O / Oxygen:
Vital Signs
Temp Pulse Resp BP Pulse Ox
97.3 F 69 20 108/74 100
05/05/24 07:50 05/05/24 07:50 05/05/24 07:50 05/05/24 07:50 05/05/24 07:50
Intake and Output
05/04/24 05/05/24 05/06/24
06:59 06:59 06:59
Intake Total 480 / 480 949 / 949
Output Total 175 / 175 350 / 350
Balance 305 / 305 599 / 599
SaO2 100
Nasal Cannula flow liters per 2
minute
Physical Exam
General: Respiratory Distress (negative), Comfortable and Other (Cachectic)
HEENT: Normocephalic and Anicteric
Cardiovascular: S1-S2 and Peripheral Edema (negative)
Respiratory: Wheeze (negative), Crackles (Bilaterally), Rhonchi (negative) and Non-Labored Respirations
GI: Soft, Non Distended, Non Tender and Normal Bowel Sounds
Neurology: Awake, Alert and Tremors (negative)
Skin: Warm, Dry, Jaundice (negative) and Rash (negative)
Labs/Micro/Reports
Lab Data
05/05/24 08:44
05/05/24 08:44
[2024-05-05 09:39] LABS: ALT (SGPT) < 10 U/L (0-35); AST (SGOT) 15 U/L (14-36); Albumin 2.5 g/dl (3.5-5.0); Alkaline Phosphatase 62 U/L (38-126); Blood Urea Nitrogen 22 mg/dl (7-17); Calcium 8.2 mg/dl (8.4-10.2); Carbon Dioxide 27 mmol/L (22-30); Chloride 109 mmol/L (98-107); Estimated Creatinine Clearance 20 ml/min; Glucose 77 mg/dl (70-99); Potassium 4.4 mmol/L (3.5-5.1); Sodium 141 mmol/L (135-145); Total Bilirubin 0.3 mg/dl (0.2-1.3); Total Protein 5.2 g/dl (6.3-8.2); eGFR 34.15
--- NOTE | 2024-05-05 10:16 | W.CON.PAL ---
Consultation
-
Date/Time Consultation Requested: 05/04/24
Date/Time Consultation Performed: 05/05/24
Requesting Provider: Alan Gamble
Performing Provider: Marie AVITIA
Reason for Consult: Goals of Care Discussion
Primary Diagnosis: FTT, weight loss, new pulmonary nodules c/f malignancy
Related Diagnosis: hx of esophageal cancer, lung cancer
Consult Requested By: Patient's Physician
Reason for Admission
Illness Course/HPI
83 year old F with PMH of esophageal cancer s/p esophagectomy with gastric pull through 2010, lung cancer s/p lobectomy years ago admitted with FTT, chronic vomiting and 35 pound weight loss in last 6 months. Upon admission, CT with new pulmonary
nodules c/f new vs metastatic malignancy. Follows at [facility]. Also being treated for CAP, has history of recurrent aspiration PNA.
Per chart review, family deferring further workup of lung nodules as they feel patient would not tolerate any aggressive treatment. GI following for chronic vomiting - had CT with contrast that showed no concern for obstruction. Recommend possible
UGI to further eval for obstruction vs stenosis but unable to tolerate at this time with PNA. Has been getting PRN zofran for nausea/vomiting. Seen by speech - recommend regular diet with thin liquids, aspiration likely 2/2 reverse aspiration from
vomiting.
Consult for GOC.
Functional Status & Support Systems
ADLS: Independent
IADLS: Independent
Review of Advanced Directives
Advanced Care Documentation Status: Complete
Type of Documentation: Living Will and Medical Power of Steam Conditioner Operator
Surrogate Decision Maker (name & contact): leon Burton
Pain & Symptom Assessment
[place] Symptom Scale 0=none, 10=worst
Pain: 0
Tired: 3
Nausea: 10
Appetite: 10
Shortness of Breath: 0
Objective Data
-
Objective Data:
Vital Signs
Temp Pulse Resp BP Pulse Ox
97.3 F 69 20 108/74 100
05/05/24 07:50 05/05/24 07:50 05/05/24 07:50 05/05/24 07:50 05/05/24 07:50
Laboratory Results
05/05/24 08:44
05/05/24 08:44
Total Protein 5.2 g/dl (6.3-8.2) L 05/05/24 08:44
Albumin 2.5 g/dl (3.5-5.0) L 05/05/24 08:44
TSH 67.00 uIU/ml (0.47-4.68) H 05/04/24 06:57
Palliative Performance Scale
Palliative Performance Scale:
PPS Level Ambulation Activity & Evidence of Disease Self Care Intake Conscious Level
100% Full Normal Activity & Work; Full Intake Full
No Evidence of Disease
90% Full Normal Activity & Work; Full Normal Full
Some Evidence of Disease
80% Full Normal Activity with Effort Full Normal or Full
Some Evidence of Disease Reduced
70% Reduced Unable Normal Job/Work Full Normal or Full
Significant Disease Reduced
60% Reduced Unable Hobby/Housework Occasional Normal or Full or Confusion
Significant Disease Assistance Reduced
50% Mainly Sit/Lie Unable to do Any Work Considerable Normal or Full or Confusion
Extensive Disease Assistance Req'd Reduced
40% Mainly in Bed Unable to do Most Activity Mainly Assistance Normal or Full or Drowsy;
Extensive Disease Reduced +/- Confusion
30% Totally Bed Unable to do Any Activity Total Care Normal or Full or Drowsy;
Bound Extensive Disease Reduced +/- Confusion
20% Totally Bed Bound Unable to do Any Activity Total Care Minimal to Full or Drowsy;
Extensive Disease Sips +/- Confusion
10% Totally Bed Bound Unable to do Any Activity Total Care Mouth Care Drowsy or Coma;
Extensive Disease Only +/- Confusion
0%
PPS Score Level: 50%
Physical Exam
-
General: Comfortable, Appears Chronically Ill and Cachectic
HEENT: Normocephalic
Respiratory: Rhonchi
Cardiac: Regular Rhythm
Peripheral Vascular: No Edema
Breast: Deferred by me
GI: Soft and No Hernias (large hiatal hernia )
Musculoskeletal: Muscle Wasting
Skin: Warm
Neuro: AO x 3
Psych: Calm
Assessment / Plan
-
Assessment/Plan:
Based on the current condition, prognosis, comorbidities, patient's goals & wishes as discussed above, the palliative care team has made the following recommendations:
Encounter for Palliative Care
- patient with history of esophageal cancer s/p esophagectomy with gastric pull through 2010, lung cancer s/p lobectomy admitted with FTT, 35 pound weight loss in last 6 months, chronic nausea/vomiting. CT with concern for lung nodules - malignancy
vs infection. Unable to take anything PO due to immediate vomiting.
- poor surgical candidate for hernia. Unable to tolerate any GI procedures. Family deferred further workup of lung nodules at this time as she is unlikely to tolerate aggressive interventions/treatment.
- seen at bedside this AM with no family present. Tells me she didnt realize she had so many medical issues going on because she didnt have any pain. States she has only been vomiting for the last week or two. Didnt notice she was losing weight.
Discussed overall concern about new vs recurrent malignancy, coupled with inability to tolerate any oral intake due to vomiting likely due to anatomy (hernia as well as history of esophagectomy). She expressed understanding of these things and also
that her time may be limited. States she has a spot in the graveyard next to her and she is ready whenever it is time. Discussed idea of going home with hospice with her, she is familiar with hospice and is open to this. Asked me to speak
with her son Micheal.
- spoke with son Micheal. Micheal says he has been trying to get her into palliative/hospice for 2-3 months as he noticed she has been declining. We discussed at this point hospice more appropriate given her overall condition and likely to decline quickly
and he agrees. Discussed hospice and the philosophy as well as medicare coverage. Also discussed she will likely need much more oversight at home and he expressed understanding.
- team and CM aware and will send hospice referral.
The above recommendations were discussed with the patient/family and medical team.
Care Reviewed
Data Reviewed
Chest X ray: Image Reviewed
Radiology procedure: Image Reviewed
Medical Tests: I reviewed
Reviewed with: Patient and Family
Time
Start Date: 05/05/24
Start Time: 09:00
Stop Date: 05/05/24
Stop Time: 10:15
Time Spent:
75 minutes
--- NOTE | 2024-05-05 12:03 | W.DCSUMMARY ---
Discharge Summary
Discharge Data
Date of Admission: 05/02/24
Date of Discharge: 05/07/24
-
Pending Results: No
Hospital Course
Discharging Physician : Dr. Alan Gamble, Dr. Silviano Angulo
Disposition : Home Hospice
Primary care physician : Saqib Mcgrath,
Principal Discharge diagnosis : Multifocal Bacterial Pneumonia of the right lung, likely secondary to aspiration event at home vs CAP, Acute hypoxic respiratory failure, secondary to Pneumonia, Fatigue, Vomiting, Weight Loss
Chronic Discharge diagnosis : Type II Diabetes Mellitus, Essential Hypertension, Hypothyroidism, History of Non-Small Cell Lung Cancer, s/p wedge resection, History of Signet Ring cell Adenocarcinoma of the Esophagus
Hospital Course :
Evon Huizar is a pleasant 83 year old woman who presented to the emergency department on 05/02/2024 with complaints of fatigue and hypoxemia into the low 80s. Pulse oximetry shortly after arriving at the ED improved on 3L NC. Of note, the patient
has a history of Non-Small Cell Lung Cancer and a history of 35lb weight loss over the past 6 months per her son. Due to significant cancer history, a CT-chest w/o IV Contrast was performed which was suggestive for multifocal pneumonia and so the
patient was started on Oral and IV antibiotics.
The CT of the chest also demonstrated multiple pulmonary nodules, measuring up to 2.7cm in diameter. Pulmonology was consulted and evaluated the patient, and discussions were begun for consideration of either follow up imaging after resolution of
infectious process or potential hospice/palliative care considering the patient's prognosis and clinical condition.
She required oxygen supplementation to maintain saturations above 94% and was kept on nasal cannula overnight.
The patients other chronic conditions (as described above) were treated with home medications.
Hospital Day 1 (05/03):
The patient endorsed a 2 week history of vomiting during an examination in the AM and, given the history of weight loss, previous cancer, and other clinical indicators, a CT-Abdomen/Pelvis was done to evaluate for possible causes of these symptoms.
She continued to require oxygen, on this day and was kept on the nasal cannula. The Abdominal CT demonstrated a 7cm hiatal hernia which was deemed to likely be the cause of her vomiting, causing intolerance to PO intake. She was also started on IVF
in lieu of being unable to keep down solids/liquids.
Hospital Day 2 - 5 (05/04 - 05/07):
A speech and swallow evaluation was done which demonstrated no issues with swallowing. GI was consulted and it was deemed that there was no appropriate intervention indicated at this time. During this time, Evon continued to regularly vomit up food
when attempting to eat. Further discussion with her son Molly indicated that these aspirations have been a chronic issue, which has only recently become worse in the preceding weeks. Taking everything into consideration, there were no viable
interventions which could be performed to rectify this issue. Considering age, clinical condition, history of repeated aspirations, and history of multiple cancers with newly identified lung nodules, a Palliative Care consult was placed to begin
discussion with the patient and her family regarding goals of care. It became apparent that she was requiring 2L of Oxygen by Nasal cannula to maintain Oxygen saturation and comfortable respiratory effort. This was communicated to the care
coordinator prior to discharge for a home oxygen tank.
It was eventually agreed that Mrs. Huizar would go home with hospice care and that equipment would be delivered to her house.
The patient was discharged on hospital day 5 to her home for hospice care.
Important imaging findings :
CT Chest W/o Iv Contrast:
1. Extensive reticulonodular and peribronchiolar opacities bilaterally, right greater than left. Differential diagnosis includes severe bronchiolitis/infection, and lymphangitic spread of carcinoma.
2. Multiple pulmonary nodules, measuring up to 2.7 cm in diameter. These may be infectious or neoplastic. Consider short-term follow-up CT.
3. Small bilateral pleural effusions.
4. Small pericardial effusion, measuring up to 1 cm in thickness.
5. Severe coronary arterial calcification. Please correlate with symptoms of and risk factors for coronary artery disease, with further workup as clinically appropriate.
CT Abdomen/Pelvis (oral only)-[facility] Only:
1). Extensive interstitial and acinar airspace disease throughout the right lower lobe suggesting pneumonia
2). 12 mm in diameter pericardial effusion.
3). 7 cm hiatal hernia.
4). Right hip replacement
5). Atherosclerosis
Procedure findings :
N/A
Discharge Plan
-
Patient Disposition: Home with Hospice
Discharge Diagnosis/Procedures: Fatigue, Severe Weight Loss, Multifocal Pneumonia
Condition: Fair
Diet: As tolerated
Activity: As tolerated
Driving Restrictions: As prior to admission
Bathing Restrictions: None
Referrals:
Saqib Mcgrath, DO [Family Provider] -
Prescriptions:
Continued
latanoprost 1 DROP drops
1 drp LEFT EYE HS
doxazosin 4 MG tablet
4 mg PO HS
lisinopril 10 MG tablet
10 mg PO DAILY
pantoprazole [Protonix] 40 mg Tablet,Delayed Release (Dr/Ec)
40 mg PO BID
escitalopram oxalate [Lexapro] 20 mg Tablet
20 mg PO DAILY
furosemide [Lasix] 40 mg Tablet
20 mg PO DAILY
albuterol sulfate 2.5 mg /3 mL (0.083 %) Solution For Nebulization
2.5 mg INHALATION R Q4HPRN PRN (Reason: sob)
famotidine [Pepcid] 40 mg Tablet
40 mg PO QPM
levothyroxine [Synthroid] 88 mcg Tablet
88 mcg PO DAILY
calcitriol 0.25 mcg Capsule
0.25 mcg PO MOWEFR
tramadol 50 mg Tablet
50 mg PO DAILY
Refresh Relieva 0.5-0.9 % Drops
1 drp LEFT EYE TID
cholecalciferol (vitamin D3) 50 mcg (2,000 unit) Tablet
50 mcg PO DAILY
PreserVision AREDS-2 250-90-40-1 mg Capsule
1 tab PO BID
Discharge Orders:
Discharge Patient (As Directed); Ordered 05/07/24
Ordered By: Alan Gamble
Discharge Date and Time
Discharge Date/Time: 05/07/24 13:27
Print Language: CYPRIOT
--- NOTE | 2024-05-05 12:04 | W.PN.HOSP.TC ---
Today's Communication/Plan
-
C/w Abx. C/w D5 NS IVF considering poor PO intake. Pending Palliative consult & goals of care discussion with patient and her family.
Assessment / Plan
Assessment / Plan
Assessment & Plan
##Multifocal Bacterial Pneumonia of the right lung, likely secondary to aspiration event at home vs CAP
- Started on empiric Abx Azithromycin PO & Ceftriaxone IV for presumed CAP
- History of chronic aspiration at home
- CT findings of extensive reticulonodular and peribronchiolar opacities bilaterally, right greater than left, and extensive interstitial and acinar airspace disease throughout the right lower lobe suggesting pneumonia
- C/w abx as above
#Acute hypoxic respiratory failure, secondary to Pneumonia (as above)
- Secondary to pneumonia
- Hypoxic into the 80s at home, was on 3.5L NC. Now, saturating >92% on RA
#Fatigue, generalized weakness
#Vomiting
#Weight Loss
- 35lb weight loss since 2023
- Likely a combination of 7cm hiatal hernia vs. cancer recurrence
- Speech & Swallow eval: c/w regular solids/thin liquids as swallow is intact
- GI Consulted for evaluation; no interventions at this time. Can consider an Upper GI Series, but will not undergo a procedure until PNA has been treated and patient is stable.
- Palliative consulted; will see today for a goals of care discussion w/ patient & family.
- C/w D5 NS @ 60cc/hour considering poor PO intake
- Aspiration precautions
#Type II Diabetes Mellitus
- Glucose 70 in the AM
- Holding diabetes medication for now as patient is barely tolerating PO
#Hypertension, Essential
- On home dose lisinopril 10mg PO
#Hypothyroidism
- Considering TSH of 67, and persistent vomiting of stomach contents, switch to IV levothyroxine 50mcg
#History of Non-Small Cell Lung Cancer, s/p wedge resection
- CT (+) for Multiple pulmonary nodules, measuring up to 2.7 cm in diameter.
- Seen by pulmonology
- Recc. close followup with [facility] and repeat CT-imaging after resolution of bacterial pneumonia
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
- s/p esophageal resection with gastric pull through
Dispo: Med/Surg
Diet: Cholesterol Lowering
DVT PPx: Heparin 5000 Q12H
Code: DNR
Anticipated Discharge: Within 24 hours
Subjective/Interval History
-
Seen in the AM. Weaned of O2 and saturating well. She has no acute complaints other than fatigue. This morning she attempted to eat solid foods for breakfast, and after approx. 30 minutes began to vomit her food again. She reports no cough, fever,
chills, chest pain, shortness of breath.
Objective Data
-
Labs:
Laboratory Results
05/05/24
08:44
WBC 9.4
Hgb 10.1 L
Hct 31.8 L
Plt Count 182
Sodium 141
Potassium 4.4
Chloride 109 H
Carbon Dioxide 27
BUN 22 H
Creatinine 1.5 H
Glucose 77
Calcium 8.2 L
Total Bilirubin 0.3
AST 15
ALT < 10
Alkaline Phosphatase 62
Vital Signs:
Vital Signs
Temp Pulse Resp BP Pulse Ox
97.3 F 69 20 108/74 100
05/05/24 07:50 05/05/24 07:50 05/05/24 07:50 05/05/24 07:50 05/05/24 07:50
I&O
05/04/24 05/05/24 05/06/24
06:59 06:59 06:59
Intake Total 480 / 480 949 / 949
Output Total 175 / 175 350 / 350
Balance 305 / 305 599 / 599
Review of Systems
-
History Source: Patient
All other systems: Reviewed and negative
Constitutional: Reports Fatigue
EENT: Reports No Symptoms Reported
Respiratory: Reports No Symptoms
Cardiac: Reports No Symptoms
Abdomen/GI: Reports Vomiting
Breast: Reports No Symptoms
Genitourinary: Reports No Symptoms
Musculoskeletal: Reports No Symptoms
Skin: Reports No Symptoms
Neuro: Reports No Symptoms
Endocrine: Reports No Symptoms
Physical Exam
-
General: Comfortable and Cachectic
HEENT: Normocephalic, Atraumatic and PERRLA
Respiratory: Wheezes, Rales and Crackles
Cardiac: Regular Rhythm and S1/S2
Breast: Deferred by me
GI: Soft, Nontender, Nondistended and Normal Bowel Sounds
Musculoskeletal: No Clubbing, No Cyanosis and No Edema
Neuro: Awake, Alert and Oriented
--- NOTE | 2024-05-05 14:25 | HOSPNOTE ---
Explained hospice and the philosophy to the son. The plan is for the son to speak with his mom this evening and make a decision. If patient agrees then it would be home hospice. Will son son tomorrow per our discussion with a decision. More
information to follow.
[2024-05-05 14:56] VITALS: BP 146/74
--- NOTE | 2024-05-05 14:56 | CM ---
MADY notifiedy by Bouchra Haley of [facility] that family has requested hospice services. Son will discuss with Evon this evening and contact Bouchra to update re: the conversation about hospice.
MADY will follow.
Plan: Hospice vs. (probable) SNF pending family discussion.
[2024-05-05 15:33] VITALS: BP 156/80
[2024-05-05] MEDS: LEVOTHROID 50 MCG IV (16:55)
[2024-05-05] MEDS: PEPCID 10 MG PO (21:45)
[2024-05-05] MEDS: ROCEPHIN 1000 MG IV (21:46)
[2024-05-05] MEDS: ZITHROMAX 500 MG PO (21:46)
[2024-05-05] MEDS: STERILE WATER FOR INJECTION 10 ML IV (21:46)
[2024-05-05 23:17] VITALS: BP 174/82
[2024-05-06] MEDS: D5/0.9% SODIUM CHLORIDE 1000 IV (01:22)
[2024-05-06 07:08] LABS: Hematocrit 32.8 % (37.0-47.0); Hemoglobin 10.3 g/dL (12.0-16.0); Mean Corp Hgb Conc. 31.4 g/dL (33.0-37.0); Mean Corpuscular Hgb 26.9 pg (27.0-31.0); Mean Corpuscular Volume 85.6 fL (81.0-99.0); Mean Platelet Volume 8.8 fL (7.4-10.4); Platelet Count 225 10^3/uL (130-400); Red Blood Cell Count 3.83 10^6/uL (4.20-5.40); Red Cell Dist. Width 16.5 % (11.5-14.5); White Blood Cell Count 12.6 10^3/uL (4.8-10.8)
[2024-05-06 07:14] LABS: Blood Urea Nitrogen 18 mg/dl (7-17); Calcium 8.2 mg/dl (8.4-10.2); Carbon Dioxide 26 mmol/L (22-30); Chloride 111 mmol/L (98-107); Estimated Creatinine Clearance 23 ml/min; Glucose 108 mg/dl (70-99); Sodium 142 mmol/L (135-145); eGFR 40.55
[2024-05-06 07:30] VITALS: BP 162/85
[2024-05-06] MEDS: ZESTRIL 10 MG PO (09:51)
[2024-05-06] MEDS: HEPARIN 5000 UNITS SC ×2 (09:52→20:50)
--- NOTE | 2024-05-06 10:07 | W.PN.PUL3 ---
Today's Communication / Plan
-
Continue antibiotics for now given she is awaiting TRX to hospice
Secretion clearance intervention
Aspiration precautions
Palliative care consulted - recs appreciated
Son agrees that workup for lung mass will be deferred. Unlikely to tolerate any therapy at this point
Patient awaiting transition to hospice likely at home, with further disposition decisions to be discussed tomorrow. No additional pulmonary recommendations at this time. Pulmonary service will now sign off. Please reconsult if there are any
additional questions/concerns.
Assessment
-
Impression:
Multifocal pneumonia likely due to aspiration
Multiple pulmonary nodules suspicious for malignancy with largest nodules: RUL: 2.7 cm, RLL: 13 x 17 mm, RML: 23mm; LLL: 12 x [address] chest: Reviewed, right lung reticulonodular extensive infiltrate. Peribronchial opacities bilaterally.
Pulmonary nodule right upper lobe 2.7 cm spiculated. Right lower lobe 1.7 cm spiculated. Right middle lobe 2.3 cm. Peripheral left upper lobe 4 mm, left lower lobe 1.2 cm. Innumerable centrilobular nodules and peribronchial thickening right
upper lobe, right middle lobe and right lower lobe. Small bilateral pleural effusions.
Anemia
Postprandial vomiting
Conditions present prior admission:
Prior history of lung cancer-follows up at [facility]. Last time seen was 02/05/2024.
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
Right middle lobe groundglass opacity status post wedge resection in 2010.
History of non-small cell cancer
History of vocal cord paralysis and aspiration
Delayed gastric emptying
Chronic aspiration
Chronic kidney disease stage IV
Type 2 diabetes
Benign hypertension DNR
Assessment and plan:
Based on symptoms, weight loss, failure to thrive, CT scan findings suggestive of recurrent lung cancer or other metastatic disease in setting of chronic aspiration
Dr. Mason reviewed old records, she follows up at [facility]. Prior she has history of lung cancer status post RML wedge resection, esophageal cancer many years ago status post esophagectomy with pull-through.
Recurrent aspiration-with history of innumerable pulmonary nodules suggestive of bronchiolitis. Being followed
-
Prior chest CT scans show also innumerable lung nodules that fluctuated over the years suggestive of aspiration.
There was no mention of large masses.
-
At this point continue aspiration precautions and antibiotics
Patient has known chronic aspiration
Nebulizers as needed
Acapella device if able.
Sputum culture if able
Follow-up at [facility] for further evaluation of lung nodules, however after patient met with palliative care yesterday, decision made to enroll into hospice which is pending for tomorrow.
I doubt that this patient based on clinical situation will tolerate any systemic therapy. Dr. Mason discussed with the son and [id number] at the bedside on 05/03/2024 and they both agree that she would not tolerate any other aggressive therapy.
Palliative care saw patient today; awaiting hospice enrollment
CT abdomen pelvis without evidence for metastatic disease
GI consulted --> eventual [facility] if pt remains stable from respiratory standpoint --> now that pt is awaiting hospice, this is a moot point
-
Home oxygen assessment prior to discharge.
-
Nutritional support
-
Patient awaiting transition to hospice likely at home, with further disposition decisions to be discussed tomorrow. No additional pulmonary recommendations at this time. Pulmonary service will now sign off. Thank you for allowing us to be
involved in the care of this patient. Please reconsult if there are any additional questions/concerns.
Total time spent today was 25 minutes for this encounter. Time includes reviewing laboratory test/imaging results, reviewing pertinent medical records, obtaining and reviewing medical history, performing an appropriate exam, ordering medications,
tests and procedures. Time also includes documentation of this encounter, coordinating patient care and communicating with other healthcare professionals. Total time does not include separately billed tests performed on this date of service.
Subjective Data
-
Date of Service:
Date of Service: May 06, 2024
Chief Complaint: Pulmonary Follow Up (Aspiration pneumonia/lung mass)
Subjective:
Seen and evaluated this AM. Currently on 2.5L/min. Vomited earlier today and aspirated, felt better after O2 was placed onto her. She currently denies CP, JESSICA, SOB at rest, fevers or chills
Review of Systems
General: Other (Negative unless mentioned above)
Objective Data
Data Reviewed
Vital Signs / I&O / Oxygen:
Vital Signs
Temp Pulse Resp BP Pulse Ox
97.4 F 88 18 162/85 99
05/06/24 07:30 05/06/24 07:30 05/06/24 07:30 05/06/24 07:30 05/06/24 09:00
Intake and Output
05/05/24 05/06/24 05/07/24
06:59 06:59 06:59
Intake Total 949 / 949 1440 / 1440
Output Total 350 / 350
Balance 599 / 599 1440 / 1440
SaO2 99
Nasal Cannula flow liters per 2
minute
Physical Exam
General: Respiratory Distress (negative), Comfortable, Chills (negative), Sweats (negative), Poor Appetite and Other (Cachectic)
HEENT: Normocephalic and Anicteric
Cardiovascular: S1-S2 and Peripheral Edema (negative)
Respiratory: Wheeze (negative), Crackles (Bilaterally (R>L)), Rhonchi (bilaterally (R>L)) and Non-Labored Respirations
GI: Soft, Non Distended, Non Tender and Normal Bowel Sounds
Neurology: Awake, Alert and Tremors (negative)
Skin: Warm, Dry, Jaundice (negative) and Rash (negative)
Labs/Micro/Reports
Lab Data
05/06/24 05:14
05/06/24 05:14
--- NOTE | 2024-05-06 12:10 | HOSPNOTE ---
Spoke with son about hospice and philosophy patient wants to go home with hospice and has made her decision very clear. Patient will be discharged tomorrow and the son will be driving patient home. All equipment will be delivered tomorrow morning.
Case management and attending aware of plan.
--- NOTE | 2024-05-06 12:29 | W.PN.HOSP.TC ---
Today's Communication/Plan
-
C/w Abx until tomorrow. Will D/c on home hospice.
Assessment / Plan
Assessment / Plan
Assessment & Plan
#Multifocal Bacterial Pneumonia of the right lung, likely secondary to aspiration event at home vs CAP
- Started on empiric Abx Azithromycin PO & Ceftriaxone IV for presumed CAP
- History of chronic aspiration at home
- CT findings of extensive reticulonodular and peribronchiolar opacities bilaterally, right greater than left, and extensive interstitial and acinar airspace disease throughout the right lower lobe suggesting pneumonia
- C/w IV Abx one more day, then dc tomorrow as patient is going home on hospice
#Acute hypoxic respiratory failure, secondary to Pneumonia (resolved)
- Secondary to pneumonia
- Hypoxic into the 80s at home, was on 3.5L NC. Now, saturating >92% on RA.
- Stable
#Fatigue, generalized weakness
#Vomiting
#Weight Loss
- 35lb weight loss since 2023
- Likely a combination of 7cm hiatal hernia vs. cancer recurrence
- Speech & Swallow eval: c/w regular solids/thin liquids as swallow is intact
- GI Consulted for evaluation; no interventions at this time. Can consider an Upper GI Series, but will not undergo a procedure until PNA has been treated and patient is stable.
- Palliative consulted; will see today for a goals of care discussion w/ patient & family.
- D/c D5 NS
- Discharge home for hospice tomorrow
#Type II Diabetes Mellitus
- Glucose 70 in the AM
- Holding diabetes medication for now as patient is barely tolerating PO
#Hypertension, Essential
- On home dose lisinopril 10mg PO
#Hypothyroidism
- Considering TSH of 67, and persistent vomiting of stomach contents, switch to IV levothyroxine 50mcg
- C/w IV Levothyroxine. D/c tomorrow on home dose
#History of Non-Small Cell Lung Cancer, s/p wedge resection
- CT (+) for Multiple pulmonary nodules, measuring up to 2.7 cm in diameter.
- Seen by pulmonology
- Recc. close followup with [facility] and repeat CT-imaging after resolution of bacterial pneumonia
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
- s/p esophageal resection with gastric pull through
Dispo: Discharge home tomorrow on hospice
Med/Surg
Diet: Cholesterol Lowering
DVT PPx: Heparin 5000 Q12H
Code: DNR
Anticipated Discharge: Within 24 hours
Subjective/Interval History
-
Seen in the AM. No acute overnight events. She has no acute complaints and would like to go home.
Objective Data
-
Labs:
Laboratory Results
05/06/24
05:14
WBC 12.6 H
Hgb 10.3 L
Hct 32.8 L
Plt Count 225 D
Sodium 142
Potassium 4.0
Chloride 111 H
Carbon Dioxide 26
BUN 18 H
Creatinine 1.3 H
Glucose 108 H
Calcium 8.2 L
Vital Signs:
Vital Signs
Temp Pulse Resp BP Pulse Ox
97.4 F 88 18 162/85 100
05/06/24 07:30 05/06/24 07:30 05/06/24 07:30 05/06/24 07:30 05/06/24 12:13
I&O
05/05/24 05/06/24 05/07/24
06:59 06:59 06:59
Intake Total 949 / 949 1440 / 1440
Output Total 350 / 350
Balance 599 / 599 1440 / 1440
Review of Systems
-
History Source: Patient
Constitutional: Reports No Symptoms
EENT: Reports No Symptoms Reported
Respiratory: Reports No Symptoms
Cardiac: Reports No Symptoms
Abdomen/GI: Reports Vomiting
Breast: Reports No Symptoms
Genitourinary: Reports No Symptoms
Musculoskeletal: Reports No Symptoms
Skin: Reports No Symptoms
Neuro: Reports No Symptoms
Endocrine: Reports No Symptoms
Hematologic / Lymphatic: Reports No Symptoms
Allergy / Immunology: Reports No Symptoms
Physical Exam
-
General: Comfortable and Cachectic
HEENT: Normocephalic, Atraumatic, Moist Mucous Membranes, Anicteric, [place] Conjunctivae and PERRLA
Respiratory: Wheezes, Rales and Crackles
Cardiac: Regular Rhythm and S1/S2
Breast: Deferred by me
GI: Soft, Nontender, Nondistended and Normal Bowel Sounds
Musculoskeletal: No Clubbing, No Cyanosis and No Edema
Neuro: Awake, Alert and Oriented
[2024-05-06] MEDS: PROTONIX 40 MG PO ×2 (13:01→20:50)
[2024-05-06 15:15] VITALS: BP 174/92
[2024-05-06] MEDS: LEVOTHROID 50 MCG IV (17:44)
[2024-05-06] MEDS: ZITHROMAX 500 MG PO (21:19)
[2024-05-06] MEDS: ROCEPHIN 1000 MG IV (21:19)
[2024-05-06] MEDS: STERILE WATER FOR INJECTION 10 ML IV (21:21)
[2024-05-06 23:40] VITALS: BP 164/84
--- NOTE | 2024-05-07 07:15 | CM ---
Addendum entered by Winter Raymond 05/07/24 08:10:
explained medicare letter.patient signed imm.
Original Note:
per faviola emery from hospice.patient will be going home on hospice today with [facility].son to [facility] patient home.Plan home on hospice today.
[2024-05-07 08:45] VITALS: BP 181/80
[2024-05-07] MEDS: HEPARIN 5000 UNITS SC (09:21)
[2024-05-07] MEDS: ZESTRIL 10 MG PO (09:23)
[2024-05-07] MEDS: PROTONIX 40 MG PO (09:23)
--- NOTE | 2024-05-07 11:19 | W.PN.HOSP.TC ---
Today's Communication/Plan
-
D/c home to hospice.
Assessment / Plan
Assessment / Plan
Assessment & Plan
#Multifocal Bacterial Pneumonia of the right lung, likely secondary to aspiration event at home vs CAP
- Started on empiric Abx Azithromycin PO & Ceftriaxone IV for presumed CAP
- History of chronic aspiration at home
- CT findings of extensive reticulonodular and peribronchiolar opacities bilaterally, right greater than left, and extensive interstitial and acinar airspace disease throughout the right lower lobe suggesting pneumonia
- C/w IV Abx one more day, then dc tomorrow as patient is going home on hospice
#Acute hypoxic respiratory failure, secondary to Pneumonia
- Secondary to pneumonia
- Hypoxic into the 80s at room air. On admission she was requiring 3-4L NC.
- Now requiring 2L NC for breathing comfort/oxygen saturations above 88%; will discuss with CM on discharge so she can go home on O2
#Fatigue, generalized weakness
#Vomiting
#Weight Loss
- 35lb weight loss since 2023
- Likely a combination of 7cm hiatal hernia vs. cancer recurrence
- Speech & Swallow eval: c/w regular solids/thin liquids as swallow is intact
- GI Consulted for evaluation; no interventions at this time. Can consider an Upper GI Series, but will not undergo a procedure until PNA has been treated and patient is stable.
- Palliative consulted; will see today for a goals of care discussion w/ patient & family.
- D/c D5 NS
- Discharge home for hospice tomorrow
#Type II Diabetes Mellitus
- Glucose stable
- Medication management per hospice as outpatient
#Hypertension, Essential
- On home dose lisinopril 10mg PO; likely not digesting 2/2 vomit
#Hypothyroidism
- Considering TSH of 67, and persistent vomiting of stomach contents, switch to IV levothyroxine 50mcg
- C/w IV Levothyroxine. D/c tomorrow on home dose
#History of Non-Small Cell Lung Cancer, s/p wedge resection
- CT (+) for Multiple pulmonary nodules, measuring up to 2.7 cm in diameter
- Seen by pulmonology
- Recc. close followup with [facility] and repeat CT-imaging after resolution of bacterial pneumonia
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
- s/p esophageal resection with gastric pull through
Dispo: Discharge home tomorrow on hospice
Med/Surg
Diet: Cholesterol Lowering
DVT PPx: Heparin 5000 Q12H
Code: DNR
Anticipated Discharge: Today
Subjective/Interval History
-
Seen in the morning. No acute overnight events. She is requiring 2L for comfort at this time. She has no acute complaints otherwise. She is content and eager to return home and be with her family.
Objective Data
-
Vital Signs:
Vital Signs
Temp Pulse Resp BP Pulse Ox
97.7 F 65 20 181/80 99
05/07/24 08:45 05/07/24 08:45 05/07/24 08:45 05/07/24 08:45 05/07/24 08:45
I&O
05/06/24 05/07/24 05/08/24
06:59 06:59 06:59
Intake Total 1440 / 1440 480 / 480
Balance 1440 / 1440 480 / 480
Review of Systems
-
History Source: Patient
All other systems: Reviewed and negative
Constitutional: Reports Fatigue
EENT: Reports No Symptoms Reported
Respiratory: Reports No Symptoms
Cardiac: Reports No Symptoms
Abdomen/GI: Reports Vomiting
Breast: Reports No Symptoms
Genitourinary: Reports No Symptoms
Musculoskeletal: Reports No Symptoms
Skin: Reports No Symptoms
Neuro: Reports No Symptoms
Endocrine: Reports No Symptoms
Physical Exam
-
General: Cachectic
HEENT: Normocephalic, Atraumatic, Moist Mucous Membranes, Anicteric, [place] Conjunctivae and PERRLA
Respiratory: Wheezes, Rales, Decreased Breath Sounds and Other (BS present in the chest)
Cardiac: Regular Rhythm and S1/S2
Breast: Deferred by me
GI: Soft, Nontender, Nondistended and Normal Bowel Sounds
Musculoskeletal: No Clubbing, No Cyanosis and No Edema
Neuro: Awake, Alert, Oriented, No Motor Deficits and Nonfocal/Grossly Intact
Psych: Calm
[2024-05-07 12:47] VITALS: BP 161/90
--- NOTE | 2024-05-07 13:16 | CM ---
Evon was discharged to home today via her son with plan for [facility].
Fax number: [phone]
== END 2024-05-07 13:27 | disposition hospice, home (50) | DRG 177 ==
LOC: 4 EAST ACU 23:41
PROVIDERS: Family Medicine; ADMITTING PHYSICIAN Internal Medicine; ATTENDING PHYSICIAN Internal Medicine; CONSULT PHYSICIAN Internal Medicine Critical Care Medicine; CONSULT PHYSICIAN Internal Medicine Gastroenterology; EMERGENCY PHYSICIAN Emergency Medicine; FAMILY PHYSICIAN Family Medicine
DX: J69.0 Pneumonitis due to inhalation of food and vomit (principal); E43 Unspecified severe protein-calorie malnutrition; J96.01 Acute respiratory failure with hypoxia; Z68.1 Body mass index [BMI] 19.9 or less, adult; N18.4 Chronic kidney disease, stage 4 (severe); R64 Cachexia; Z66 Do not resuscitate; Z51.5 Encounter for palliative care; E11.22 Type 2 diabetes mellitus with diabetic chronic kidney disease; J15.9 Unspecified bacterial pneumonia; I12.9 Hypertensive chronic kidney disease with stage 1 through stage 4 chronic kidney disease, or unspecified chronic kidney disease; R62.7 Adult failure to thrive; R53.1 Weakness; E03.9 Hypothyroidism, unspecified; K44.9 Diaphragmatic hernia without obstruction or gangrene; K21.9 Gastro-esophageal reflux disease without esophagitis; D63.1 Anemia in chronic kidney disease; Z90.2 Acquired absence of lung [part of]; Z79.890 Hormone replacement therapy; Z79.82 Long term (current) use of aspirin; Z79.899 Other long term (current) drug therapy; Z96.641 Presence of right artificial hip joint; Z87.891 Personal history of nicotine dependence; Z85.118 Personal history of other malignant neoplasm of bronchus and lung; Z85.01 Personal history of malignant neoplasm of esophagus
CPT/HCPCS: 71250; 74176; 80048; 80053; 80076; 84132; 84145; 84443; 85025; 85027; 87205; 92610; 93005; 97116; 97163; 99285